=== PATIENT | female | born 1930 | race Caucasian/White ===

== ENCOUNTER 2019-04-25 13:21 | Emergency (ER) | payer OTHER ==
--- OUTSIDE RECORDS SUMMARY | 2019-04-25 13:24 | XMS REPORT ---
:1930 Author Organization [employer] Care Team Providers Name Role Phone Cardona, Na Provider Role Unavailable Allergies, Adverse Reactions, Alerts Substance Reaction Event Type Sulfa Info Not Available Drug Allergy PCN Info Not Available Drug Allergy Problems Problem Type Condition Code Onset Dates Condition Status Assessment Unsteady gait R26.81 Active Assessment Leukopenia, unspecified type D72.819 Active Assessment Osteopenia M85.80 Active Problem Hyperlipidemia E78.5 Active Assessment Restless leg syndrome G25.81 Active Problem GERD without esophagitis K21.9 Active Assessment Primary osteoarthritis involving M15.0 Active multiple joints Problem Depression with anxiety F41.8 Active Problem 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 Problem Chronic fatigue R53.82 Active Problem Leukopenia, unspecified type D72.819 Active Problem Seasonal allergies J30.2 Active Assessment Seborrheic keratosis L82.1 Active Assessment Hypothyroidism E03.9 Active Problem Primary osteoarthritis involving M15.0 Active multiple joints Assessment Depression with anxiety F41.8 Active Problem Chronic UTI (urinary tract N39.0 Active infection) Problem Spinal stenosis of lumbar region M48.062 Active with neurogenic claudication Problem Elevated blood pressure reading R03.0 Active Problem Muscle weakness of lower extremity M62.81 Active Problem Restless leg syndrome G25.81 Active Assessment Hyperlipidemia E78.5 Active Assessment Adult general medical exam Z00.00 Active Problem Peripheral neuropathy G62.9 Active Problem Hypothyroidism E03.9 Active Problem Osteopenia M85.80 Active Problem Chronic UTI N39.0 Active Medications Medication Code Code Instructions Start End Status Dosage System Date Date Effexor XR ND 95954978974 150 MG Orally Active 1 capsule Once a day with food Pravachol NDC 05039249634 40 MG Orally Active 1 tablet Once a day Estrace ND 13696128121 0.1 MG/GM Apr 25, Active as directed Vaginal twice 2018 weekly Pravachol NDC 19007194592 40 MG Orally Active 1 tablet Once a day Effexor XR ND 48508768183 150 MG Active TAKE 1 CAPSULE BY MOUTH ONCE A DAY Clonazepam [facility] 97540759910 0.5 MG Orally Active 1 tablet at Once a day bedtime Pravastatin [facility] 65231038450 40 MG Orally Active 1 tablet Sodium Once a day Levothyroxine [facility] 59710113225 88 MCG Orally Active 1 capsule Sodium Once a day on an empty stomach in the morning Actonel [facility] 53300951802 35 MG Orally Active 1 tablet once a week Trimethoprim [facility] 60592379566 100 mg Orally Active 1 tablet Once a day Cefdinir [facility] 59069622589 300 MG Orally Active one tablet BID daily Pantoprazole [facility] 21618016803 40 MG Orally Active 1 tablet Sodium Once a day Restasis [facility] 48433583267 0.05 % Active 1 drop into Ophthalmic affected Twice a day eye Actonel [facility] 51410049711 35 MG Active TAKE 1 TABLET BY MOUTH ONCE A WEEK Qnasl [facility] 85389104912 80 MCG/ACT Active 2 puffs in Nasally Once a each day nostril Zetia [facility] 74497702525 10 MG Orally Active 1 tablet Once a day Venlafaxine HCl [facility] 06017414348 150 MG Orally Active 1 capsule ER Once a day with food Gabapentin [facility] 33129480382 600 MG Orally Active 1 tablet Three times a day Qnasl [facility] 54644067241 80 MCG/ACT Active INSTILL 2 SPRAYS NASALLY ONCE A DAY Requip [facility] 96538561103 1 MG Orally Active 1 tablet four times a day Effexor XR [facility] 23224996307 150 MG Orally Active 1 capsule Once a day with food Estradiol [facility] 09859805239 0.1 MG/GM Active as directed Vaginal Two times a Week Aspir-81 [facility] 12154023752 81 MG Orally Active 1 tablet Once a day Zetia [facility] 02779173502 10 MG Orally Active 1 tablet Once a day Pravachol [facility] 46642162928 40 Active TAKE ONE TABLET BY MOUTH EVERY NIGHT AT BEDTIME Results No Known Results Summary Purpose [employer]ClinicalWorks Submission
--- OUTSIDE RECORDS SUMMARY | 2019-04-25 13:24 | XMS REPORT ---
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 Problem Chronic fatigue R53.82 Active Problem Leukopenia, unspecified type D72.819 Active Assessment Asymptomatic bacteriuria R82.71 Active Problem Seasonal allergies J30.2 Active Problem Primary osteoarthritis involving M15.0 Active multiple joints Problem Chronic UTI (urinary tract N39.0 Active infection) Problem Spinal stenosis of lumbar region M48.062 Active with neurogenic claudication Problem Elevated blood pressure reading R03.0 Active Problem Muscle weakness of lower extremity M62.81 Active Problem Restless leg syndrome G25.81 Active Assessment Recurrent UTI N39.0 Active Assessment Urinary tract infection, site not N39.0 Active specified Problem Peripheral neuropathy G62.9 Active Problem Hypothyroidism E03.9 Active Problem Osteopenia M85.80 Active Problem Hyperlipidemia E78.5 Active Problem Chronic UTI N39.0 Active Problem GERD without esophagitis K21.9 Active Medications Medication Code Code Instructions Start End Status Dosage System Date Date Qnasl [facility] 53627993125 80 MCG/ACT Active INSTILL 2 SPRAYS NASALLY ONCE A DAY Zetia [facility] 71692635488 10 MG Orally Active 1 tablet Once a day Restasis [facility] 20061991338 0.05 % Active 1 drop Ophthalmic into Twice a day affected eye Clonazepam [facility] 28135568055 0.5 MG Orally Active 1 tablet Once a day at bedtime Requip [facility] 88670157444 1 MG Orally Active 1 tablet four times a day Effexor XR [facility] 62054221428 150 MG Active TAKE 1 CAPSULE BY MOUTH ONCE A DAY Estradiol [facility] 92273497147 0.1 MG/GM Active as Vaginal Two directed times a Week Gabapentin [facility] 54165237687 600 MG Orally Active 1 tablet Three times a day Pravastatin [facility] 49101594256 40 MG Orally Active 1 tablet Sodium Once a day Actonel [facility] 55970062335 35 MG Orally Active 1 tablet once a week Pravachol [facility] 38361703652 40 MG Orally Active 1 tablet Once a day Trimethoprim ND 98343376211 100 mg Orally Inactive 1 tablet Once a day Cipro [facility] 56718587820 250 MG Orally Dec 30, Jan Active 1 tablet every 12 hrs 2018 Keflex [facility] 43818644992 250 MG Orally Dec 30, Mar Active 1 capsule daily 2018 Pravachol [facility] 86128344694 40 MG Orally Active 1 tablet Once a day Effexor XR [facility] 54963037086 150 MG Orally Active 1 capsule Once a day with food Actonel [facility] 27085570395 35 MG Active TAKE 1 TABLET BY MOUTH ONCE A WEEK Cefdinir [facility] 18466604997 300 MG Orally Active one tablet BID daily Estrace [facility] 47401473645 0.1 MG/GM Apr 25, Active as Vaginal twice 2018 directed weekly Venlafaxine HCl [facility] 92064409469 150 MG Orally Active 1 capsule ER Once a day with food Zetia [facility] 92815884538 10 MG Orally Active 1 tablet Once a day Levothyroxine [facility] 42966229651 88 MCG Orally Active 1 capsule Sodium Once a day on an empty stomach in the morning Pravachol [facility] 69772880248 40 Active TAKE ONE TABLET BY MOUTH EVERY NIGHT AT BEDTIME Aspir-81 [facility] 06531613590 81 MG Orally Active 1 tablet Once a day Qnasl [facility] 75956320457 80 MCG/ACT Active 2 puffs in Nasally Once a each day nostril Effexor XR [facility] 80773486992 150 MG Orally Active 1 capsule Once a day with food Pantoprazole [facility] 11295880084 40 MG Orally Active 1 tablet Sodium Once a day Results No Known Results Summary Purpose eClinicalWorks Submission
--- OUTSIDE RECORDS SUMMARY | 2019-04-25 13:25 | XMS REPORT ---
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 Problem Chronic fatigue R53.82 Active Problem Leukopenia, unspecified type D72.819 Active Problem Seasonal allergies J30.2 Active Problem Primary osteoarthritis involving M15.0 Active multiple joints Problem Chronic UTI (urinary tract N39.0 Active infection) Problem Spinal stenosis of lumbar region M48.062 Active with neurogenic claudication Problem Elevated blood pressure reading R03.0 Active Problem Muscle weakness of lower extremity M62.81 Active Problem Restless leg syndrome G25.81 Active Assessment Recurrent UTI N39.0 Active Problem Peripheral neuropathy G62.9 Active Problem Hypothyroidism E03.9 Active Problem Osteopenia M85.80 Active Problem Hyperlipidemia E78.5 Active Problem Chronic UTI N39.0 Active Problem GERD without esophagitis K21.9 Active Medications Medication Code System Code Instructions Start End Date Status Dosage Date Keflex [facility] 57873487357 250 MG Orally Dec 30September 06, Active 1 capsule daily 2018 2019 Results No Known Results Summary Purpose eClinicalWorks Submission
--- OUTSIDE RECORDS SUMMARY | 2019-04-25 13:25 | XMS REPORT ---
:1930 Author Organization eClinicalWorks Care Team Providers Name Role Phone Cardona, Na Provider Role Unavailable Allergies No Known Allergies Problems Problem Type Condition Code Onset Dates Condition Status Problem GERD without esophagitis K21.9 Active Problem Lumbar stenosis with neurogenic M48.062 [...] Problem Restless leg syndrome G25.81 Active Assessment Hypothyroidism E03.9 Active Problem Chronic UTI N39.0 Active Problem Peripheral neuropathy G62.9 Active Problem Depression with anxiety F41.8 Active Problem Hypothyroidism E03.9 Active Problem Osteopenia M85.80 Active Problem Hyperlipidemia E78.5 Active Medications Medication Code Code Instructions Start End Status Dosage System Date Date Levothyroxine NDC 79544743319 88 MCG Orally Inactive 1 capsule Sodium Once a day on an empty stomach in the morning Levothyroxine NDC 97742761779 88 MCG Orally Jan 26, Active 1 tablet Sodium Once a day 2018 on an empty stomach in the morning Results No Known Results Summary Purpose eClinicalWorks Submission
--- OUTSIDE RECORDS SUMMARY | 2019-04-25 13:25 | XMS REPORT ---
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 Problem Chronic fatigue R53.82 Active Problem Leukopenia, unspecified type D72.819 Active Problem Seasonal allergies J30.2 Active Assessment Depression with anxiety F41.8 Active Assessment Restless leg syndrome G25.81 Active Problem Primary osteoarthritis involving M15.0 Active multiple joints Assessment Primary osteoarthritis involving M15.0 Active multiple joints Problem Chronic UTI (urinary tract N39.0 Active infection) Problem Spinal stenosis of lumbar region M48.062 Active with neurogenic claudication Problem Elevated blood pressure reading R03.0 Active Problem Muscle weakness of lower extremity M62.81 Active Problem Restless leg syndrome G25.81 Active Assessment Hyperlipidemia E78.5 Active Assessment Hypothyroidism E03.9 Active Problem Peripheral neuropathy G62.9 Active Problem Hypothyroidism E03.9 Active Problem Osteopenia M85.80 Active Problem Chronic UTI N39.0 Active Medications Medication Code Code Instructions Start End Status Dosage System Date Date Zetia [facility] 97863047504 10 MG Orally Active 1 tablet Once a day Aspir-81 [facility] 24451221536 81 MG Orally Active 1 tablet Once a day Estradiol ND 04702479374 0.1 MG/GM Active as directed Vaginal Two times a Week Qnasl [facility] 91468200108 80 MCG/ACT Active 2 puffs in Nasally Once a each day nostril Restasis [facility] 95092872032 0.05 % Active 1 drop into Ophthalmic affected Twice a day eye Effexor XR [facility] 78504839075 150 MG Active TAKE 1 CAPSULE ONCE DAILY WITH FOOD Zetia [facility] 20779199439 10 MG Orally Active 1 tablet Once a day Pantoprazole [facility] 09496104286 40 MG Orally Active 1 tablet Sodium Once a day Pravachol [facility] 13925764229 40 MG Orally Active 1 tablet Once a day Requip [facility] 96808171089 1 MG Orally Active 1 tablet four times a day Actonel [facility] 98871750793 35 MG Orally Active 1 tablet once a week Estrace [facility] 00988199963 0.1 MG/GM Apr 25, Active as directed Vaginal twice 2017 weekly Keflex [facility] 39705428174 250 MG Orally Dec 30, Mar 30, Active 1 capsule daily 2018 2019 Levothyroxine [facility] 86162492084 88 MCG Orally Jan 26, Active 1 tablet on Sodium Once a day 2018 an empty stomach in the morning Levothyroxine [facility] 48775510237 88 MCG Orally Active 1 capsule Sodium Once a day on an empty stomach in the morning Qnasl [facility] 53867705047 80 MCG/ACT Active INSTILL 2 SPRAYS NASALLY ONCE A DAY Gabapentin [facility] 73000786937 600 MG Orally Active 1 tablet Three times a day Pravachol [facility] 98684645575 40 MG Orally Active 1 tablet Once a day Effexor XR [facility] 04522802843 150 MG Orally Active 1 capsule Once a day with food Results No Known Results Summary Purpose eClinicalWorks Submission
--- OUTSIDE RECORDS SUMMARY | 2019-04-25 13:25 | XMS REPORT ---
:1930 Author Organization eClinicalWorks Care Team Providers Name Role Phone Shin Mary Provider Role Unavailable Allergies No Known Allergies [...] Active Problem Restless leg syndrome G25.81 Active Problem Peripheral neuropathy G62.9 Active Problem Hypothyroidism E03.9 Active Problem Osteopenia M85.80 Active Problem Hyperlipidemia E78.5 Active Problem Chronic UTI N39.0 Active Problem GERD without esophagitis K21.9 Active Medications Medication Code System Code Instructions Start End Date Status Dosage Date Monurol [facility] 24417622999 3 GM Orally once Jan 08, Jan 09, Active 1 packet 2018 2018 for 3 doses mixed in 3 to 4 ounces of water Results No Known Results Summary Purpose eClinicalWorks Submission
--- OUTSIDE RECORDS SUMMARY | 2019-04-25 13:25 | XMS REPORT ---
:1930 Author Organization eClinicalWorks Care Team Providers Name Role Phone ShinMary Provider Role Unavailable Allergies, Adverse Reactions, Alerts [...] Problem Restless leg syndrome G25.81 Active Assessment Urinary tract infection, site not N39.0 Active specified Assessment Recurrent UTI N39.0 Active Problem Peripheral neuropathy G62.9 Active Problem Hypothyroidism E03.9 Active Problem Osteopenia M85.80 Active Problem Hyperlipidemia E78.5 Active Problem Chronic UTI N39.0 Active Problem GERD without esophagitis K21.9 Active Medications Medication Code Code Instructions Start End Status Dosage System Date Date Estrace [facility] 25302128417 0.1 MG/GM Apr 25, Active as directed Vaginal twice 2018 weekly Zetia [facility] 79374615497 10 MG Orally Active 1 tablet Once a day Actonel [facility] 15910418925 35 MG Orally Active 1 tablet once a week Pravachol ND 96589929733 40 MG Orally Active 1 tablet Once a day Effexor XR [facility] 62520608027 150 MG Active TAKE 1 CAPSULE ONCE DAILY WITH FOOD Keflex [facility] 21190154563 250 MG Orally Dec 30September Active 1 capsule daily 2018 Levothyroxine [facility] 40521986267 88 MCG Orally Jan 26, Active 1 tablet on Sodium Once a day 2019 an empty stomach in the morning Effexor XR [facility] 19862715667 150 MG Orally Active 1 capsule Once a day with food Pantoprazole [facility] 59371747380 40 MG Orally Active 1 tablet Sodium Once a day Gabapentin [facility] 22052130109 600 MG Orally Active 1 tablet Three times a day Qnasl [facility] 43261927756 80 MCG/ACT Active INSTILL 2 SPRAYS NASALLY ONCE A DAY Requip [facility] 85799825514 1 MG Orally Active 1 tablet four times a day Restasis [facility] 85636400433 0.05 % Active 1 drop into Ophthalmic affected Twice a day eye Estradiol [facility] 49381817356 0.1 MG/GM Active as directed Vaginal Two times a Week Zetia [facility] 24182793756 10 MG Orally Active 1 tablet Once a day Aspir-81 [facility] 73808050171 81 MG Orally Active 1 tablet Once a day Levothyroxine [facility] 20146034540 88 MCG Orally Active 1 capsule Sodium Once a day on an empty stomach in the morning Qnasl [facility] 72862733612 80 MCG/ACT Active 2 puffs in Nasally Once a each day nostril Pravachol [facility] 45024700148 40 MG Orally Active 1 tablet Once a day Results No Known Results Summary Purpose eClinicalWorks Submission
--- OUTSIDE RECORDS SUMMARY | 2019-04-25 13:25 | XMS REPORT ---
[...] Problem GERD without esophagitis K21.9 Active Medications No Known Medications Results No Known Results Summary Purpose [employer] Submission
--- OUTSIDE RECORDS SUMMARY | 2019-04-25 13:25 | XMS REPORT ---
[...] G25.81 Active Assessment Hypothyroidism E03.9 Active Problem Peripheral neuropathy G62.9 Active Problem Hypothyroidism E03.9 Active Problem Osteopenia M85.80 Active Problem Hyperlipidemia E78.5 Active Problem Chronic UTI N39.0 Active Problem GERD without esophagitis K21.9 Active Medications Medication Code Code Instructions Start End Status Dosage System Date Date Levothyroxine [facility] 40124660952 88 MCG Orally Active 1 capsule Sodium Once a day on an empty stomach in the morning Results No Known Results Summary Purpose eClinicalWorks Submission
--- OUTSIDE RECORDS SUMMARY | 2019-04-25 13:26 | XMS REPORT ---
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 Problem Chronic fatigue R53.82 Active Problem Spinal stenosis of lumbar region M48.062 Active with neurogenic claudication Problem Primary osteoarthritis involving M15.0 Active multiple joints Assessment Acute allergic rhinitis J30.9 Active Problem Leukopenia, unspecified type D72.819 Active Problem Acute allergic rhinitis J30.9 Active Problem Muscle weakness of lower extremity M62.81 Active Problem Chronic UTI (urinary tract N39.0 Active infection) Problem Seasonal allergies J30.2 Active Problem Elevated blood pressure reading R03.0 Active Problem Restless leg syndrome G25.81 Active Problem Osteopenia M85.80 Active Assessment Cough R05 Active Problem Hypothyroidism E03.9 Active Problem Hyperlipidemia E78.5 Active Problem Chronic UTI N39.0 Active Problem GERD without esophagitis K21.9 Active Problem Peripheral neuropathy G62.9 Active Problem Depression with anxiety F41.8 Active Medications Medication Code Code Instructions Start End Status Dosage System Date Date Effexor XR ND 01209848322 150 MG Orally Active 1 capsule Once a day with food Levothyroxine ND 70955611933 88 MCG Orally Nov , Active 1 tablet on Sodium Once a day 2019 an empty stomach in the morning Effexor XR [facility] 66985038467 150 MG Active TAKE 1 CAPSULE ONCE DAILY WITH FOOD Estradiol ND 66781679606 0.1 MG/GM Active as directed Vaginal Two times a Week Pantoprazole ND 20831075729 40 MG Orally Active 1 tablet Sodium Once a day Zetia ND 92833851242 10 MG Orally Active 1 tablet Once a day Actonel ND 47875221946 35 MG Orally Active 1 tablet once a week Requip ND 74191291233 1 MG Orally Active 1 tablet four times a day Estrace [facility] 95008506253 0.1 MG/GM Apr 25, Active as directed Vaginal twice 2018 weekly Restasis [facility] 93733038192 0.05 % Active 1 drop into Ophthalmic affected Twice a day eye Pravachol [facility] 18565789204 40 MG Orally Active 1 tablet Once a day Gabapentin [facility] 55524353209 600 MG Orally Active 1 tablet Three times a day Qnasl [facility] 44314695360 80 MCG/ACT Active 2 puffs in Nasally Once a each day nostril Levothyroxine [facility] 10509545469 88 MCG Orally Active 1 capsule Sodium Once a day on an empty stomach in the morning Aspir-81 [facility] 45270050658 81 MG Orally Active 1 tablet Once a day Keflex [facility] 66797741276 250 MG Orally Dec 30September Active 1 capsule daily 2018 Zetia [facility] 63444512629 10 MG Orally Active 1 tablet Once a day Pravachol [facility] 48598979778 40 MG Orally Active 1 tablet Once a day Qnasl [facility] 87294099649 80 MCG/ACT Active 2 sprays in Nasally Once a each day nostril Results No Known Results Summary Purpose eClinicalWorks Submission
[2019-04-25] MEDS ORDERED: LEVALBUTEROL 1.25 MG/3 ML NEB ONE (14:17)
--- NOTE | 2019-04-25 16:25 | RAD REPORT ---
EXAM DESCRIPTION: RAD - Chest Pa And Lat (2 Views) - 04/25/2019 3:38 pm CLINICAL HISTORY: chest pain COMPARISON: Chest Single View dated 09/20/2016; CHEST PA AND LAT 2 VIEW dated 03/30/2015 TECHNIQUE: Frontal and lateral views of the chest were obtained. FINDINGS: The lungs are clear of focal mass or consolidation. Fibrotic changes are present similar t o comparison. Heart size is normal and central vasculature is within normal limits. Right base ate lectasis is present. Minimal right pleural effusion is suspected. No acute bony finding noted. No ao rtic abnormality. IMPRESSION: Diffuse change similar to comparison with focal fibrotic stranding or atelectasis right base.
--- NOTE | 2019-04-25 16:52 | ER ---
Nurse's Notes [facility] Name: Mary Oakley Age: 88 yrs Sex: Female : 1930 Arrival Date: 04/25/2019 Time: 13:23 Bed 7 Private MD: Charleen Cardona Diagnosis: Acute bronchitis Presentation: 04/25 13:33 Presenting complaint: Patient states: "I've had a bad cough for several weeks, before aj1 that I had nasal congestion and lately I've been having bad headaches" Denies fever. Transition of care: patient was not received from another setting of care. Onset of symptoms was April 2019. Risk Assessment: Do you want to hurt yourself or someone else? Patient reports no desire to harm self or others. Initial Sepsis Screen: Does the patient meet any 2 criteria? HR > 90 bpm. No. Patient's initial sepsis screen is negative. Does the patient have a suspected source of infection? Yes: Productive cough/pneumonia. Care prior to arrival: None. 13:33 Method Of Arrival: Ambulatory aj1 13:33 Acuity: YOLIS 3 aj1 Triage Assessment: 13:41 General: Appears in no apparent distress. uncomfortable, Behavior is cooperative, flat. aj1 Pain: Denies pain. Neuro: Level of Consciousness is awake, alert, obeys commands. Cardiovascular: Patient's skin is warm and dry. Respiratory: Airway is patent Respiratory effort is even, unlabored, Respiratory pattern is regular, symmetrical. Historical: - Allergies: 13:41 PENICILLINS; aj1 13:41 Sulfa (Sulfonamide Antibiotics); aj1 - Home Meds: 13:41 gabapentin oral oral [Active]; estracde cream [Active]; ropinirole oral oral [Active]; aj1 QNASL nasal nasal [Active]; levothyroxine oral [Active]; pantoprazole oral oral [Active]; cranberry oral oral [Active]; gianna red [Active]; B12 sublingual sublingual [Active]; Co Q-10 oral oral [Active]; Folic Acid Oral [Active]; calcium oxide [Active]; Magnesium Oxide Oral [Active]; biotin oral oral [Active]; Vitamin D3 oral oral [Active]; venlafaxine oral oral [Active]; ezetimibe oral oral [Active]; pravastatin oral oral [Active]; Aspirin Oral [Active]; risedronate oral oral [Active]; hyaluronic acid [Active]; Trimethoprim Oral [Active]; - PMHx: 13:41 Hypothyroidism; Hyperlipidemia; GERD; vasovagal syncope; Depression; UTI; aj1 - Immunization history:: Flu vaccine is not up to date. - Coronavirus screen:: The patient has NOT traveled to [place] in the past 14 days. - Social history:: Smoking status: Patient/guardian denies using tobacco. - Ebola Screening: : Patient denies travel to an Ebola-affected area in the 21 days before illness onset. Screenin:49 Abuse screen: Denies threats or abuse. Denies injuries from another. Nutritional bp screening: No deficits noted. Tuberculosis screening: No symptoms or risk factors identified. Fall Risk None identified. Assessment: 13:49 General: SEE TRIAGE NOTE. bp 15:13 Reassessment: NO S/S ACUTE DISTRESS, VS STABLE. bp 16:06 Reassessment: PT RESTING QUIETLY, NO S/S ACUTE DISTRESS AT THIS TIME. bp 17:17 Reassessment: PT D/C HOME AMBULATORY WITH FAMILY, DX WITH ACUTE BRONCHITIS. bp Vital Signs: 13:41 BP 102 / 57; Pulse 77; Resp 18; Temp 97.6; Pulse Ox 98% on R/A; Weight 79.38 kg (R); aj1 Height 5 ft. 7 in. (170.18 cm) (R); Pain 0/10; 15:13 BP 130 / 61; Pulse 82; Resp 17; Pulse Ox 100% ; bp 16:06 BP 138 / 61; Pulse 86; Resp 17; Pulse Ox 98% ; bp 17:17 BP 136 / 56; Pulse 83; Resp 17; Temp 98; Pulse Ox 99% ; bp 13:41 Body Mass Index 27.41 (79.38 kg, 170.18 cm) aj1 ED Course: 13:23 Patient arrived in ED. as 13:23 Charleen Cardona MD is Private Physician. as 13:34 Triage completed. aj1 13:41 Arm band placed on Patient placed in an exam room. aj1 13:45 Chalo Ayon PA is PHCP. [facility] 13:45 Jesus Francois MD is Attending Physician. [facility] 13:49 Patient has correct armband on for positive identification. Bed in low position. Call bp light in reach. Side rails up X2. Adult w/ patient. 14:09 Daniel Nicole, RN is Primary Nurse. bp 16:51 Charleen Cardona MD is Referral Physician. [facility] 17:17 No provider procedures requiring assistance completed. Patient did not have IV access bp during this emergency room visit. Administered Medications: 14:17 Drug: Xopenex (3) 1.25 mg Route: Inhalation; bp 17:10 Drug: Decadron 10 mg Route: IM; Site: Other; bp 17:17 Follow up: Response: No adverse reaction bp Outcome: 16:51 Discharge ordered by . jmm 17:21 Discharged to home ambulatory, with family. bp 17:21 Condition: stable 17:21 Discharge instructions given to patient, Instructed on discharge instructions, follow up and referral plans. medication usage, Demonstrated understanding of instructions, follow-up care, medications, Prescriptions given X 3. 17:30 Patient left the ED. bp Signatures: Zoya Payne, RN RN aj1 Chalo Ayon PA PA Cecy Garcia as Daniel Nicole, RN RN bp
--- NOTE | 2019-04-25 16:53 | EDPHYS ---
Physician Documentation [facility] Name: Mary Oakley Age: 88 yrs Sex: Female : 1930 Arrival Date: 04/25/2019 Time: 13:23 Bed 7 Private MD: Charleen Cardona ED Physician Jesus Francois HPI: 04/25 14:09 This 88 yrs old Female presents to ER via Ambulatory with complaints of Cold jmm Symptoms. 14:09 The patient or guardian reports cough. Onset: The symptoms/episode began/occurred jmm gradually, 3 week(s) ago. 14:09 Modifying factors: The symptoms are alleviated by nothing. the symptoms are aggravated jmm by nothing. Associated signs and symptoms: Pertinent negatives: fever, sore throat. This is an 88 year old female with a history of hlp, hypothyroidism that presents to the ED with complaints of cough, congestion beginning approx 3 weeks ago worsening. Patient denies fever. . Historical: - Allergies: 13:41 PENICILLINS; aj1 13:41 Sulfa (Sulfonamide Antibiotics); aj1 - Home Meds: 13:41 gabapentin oral oral [Active]; estracde cream [Active]; ropinirole oral oral [Active]; aj1 QNASL nasal nasal [Active]; levothyroxine oral [Active]; pantoprazole oral oral [Active]; cranberry oral oral [Active]; gianna red [Active]; B12 sublingual sublingual [Active]; Co Q-10 oral oral [Active]; Folic Acid Oral [Active]; calcium oxide [Active]; Magnesium Oxide Oral [Active]; biotin oral oral [Active]; Vitamin D3 oral oral [Active]; venlafaxine oral oral [Active]; ezetimibe oral oral [Active]; pravastatin oral oral [Active]; Aspirin Oral [Active]; risedronate oral oral [Active]; hyaluronic acid [Active]; Trimethoprim Oral [Active]; - PMHx: 13:41 Hypothyroidism; Hyperlipidemia; GERD; vasovagal syncope; Depression; UTI; aj1 - Immunization history:: Flu vaccine is not up to date. - Coronavirus screen:: The patient has NOT traveled to [place] in the past 14 days. - Social history:: Smoking status: Patient/guardian denies using tobacco. - Ebola Screening: : Patient denies travel to an Ebola-affected area in the 21 days before illness onset. ROS: 14:09 Constitutional: Negative for fever, chills, and weight loss, Cardiovascular: Negative [facility] for chest pain, palpitations, and edema. 14:09 ENT: Positive for sinus congestion. 14:09 Respiratory: Positive for cough. 14:09 All other systems are negative. Exam: 14:09 Constitutional: This is a well developed, well nourished patient who is awake, alert, jmm and in no acute distress. Head/Face: atraumatic. Eyes: EOMI, no conjunctival erythema appreciated ENT: Moist Mucus Membranes Neck: Trachea midline, Supple Chest/axilla: Normal chest wall appearance and motion. Cardiovascular: Regular rate and rhythm. No edema appreciated 14:09 Abdomen/GI: Non distended, soft Back: Normal ROM Skin: General appearance color normal MS/ Extremity: Moves all extremities, no obvious deformities appreciated, no edema noted to the lower extremities Neuro: Awake and alert, normal gait Psych: Behavior is normal, Mood is normal, Patient is cooperative and pleasant 14:09 Respiratory: the patient does not display signs of respiratory distress, Respirations: normal, Breath sounds: wheezing: that is mild, is scattered. Vital Signs: 13:41 BP 102 / 57; Pulse 77; Resp 18; Temp 97.6; Pulse Ox 98% on R/A; Weight 79.38 kg (R); aj1 Height 5 ft. 7 in. (170.18 cm) (R); Pain 0/10; 15:13 BP 130 / 61; Pulse 82; Resp 17; Pulse Ox 100% ; bp 16:06 BP 138 / 61; Pulse 86; Resp 17; Pulse Ox 98% ; bp 17:17 BP 136 / 56; Pulse 83; Resp 17; Temp 98; Pulse Ox 99% ; bp 13:41 Body Mass Index 27.41 (79.38 kg, 170.18 cm) aj1 MDM: 14:01 Patient medically screened. [facility] 16:49 Data reviewed: vital signs, nurses notes. Counseling: I had a detailed discussion with vamshi the patient and/or guardian regarding: the historical points, exam findings, and any diagnostic results supporting the discharge/admit diagnosis, radiology results, the need for outpatient follow up, to return to the emergency department if symptoms worsen or persist or if there are any questions or concerns that arise at home. ED course: Patient is alert and non toxic in appearance in the ED. Patient advised to follow up with pcp and otherwise given strict return precautions. Patient understood and agrees with the plan of care. . 04/25 14:08 Order name: Chest Pa And Lat (2 Views) XRAY vamshi Administered Medications: 14:17 Drug: Xopenex (3) 1.25 mg Route: Inhalation; bp 17:10 Drug: Decadron 10 mg Route: IM; Site: Other; bp 17:17 Follow up: Response: No adverse reaction bp Disposition: 17:54 Co-signature as Attending Physician, Jesus Francois MD. rn Disposition: 04/25/19 16:51 Discharged to Home. Impression: Acute bronchitis. - Condition is Stable. - Discharge Instructions: Acute Bronchitis, Adult. - Prescriptions for Guaiatussin AC - take 5 milliliter by ORAL route every 6 hours; 60 milliliter. Medrol (Greg) 4 mg Oral Tablets, Dose Pack - take 1 tablet by ORAL route as directed - follow package instructions; 1 packet. Albuterol Sulfate 90 mcg/actuation - inhale 1-2 puff by INHALATION route every 4-6 hours; 1 Inhaler. - Medication Reconciliation Form, Thank You Letter, Antibiotic Education, Prescription Opioid Use form. - Follow up: Charleen Cardona MD; When: 2 - 3 days; Reason: Recheck today's complaints, Continuance of care, Re-evaluation by your physician. Signatures: Dispatcher [employer] EDZoya Gillis RN RN aj1 Chalo Ayon PA PA jmm Nieto, Roman, MD MD rn Peltier, Brian, RN RN bp Corrections: (The following items were deleted from the chart) 17:30 16:51 04/25/2019 16:51 Discharged to Home. Impression: Acute bronchitis. Condition is bp Stable. Forms are Medication Reconciliation Form, Thank You Letter, Antibiotic Education, Prescription Opioid Use. Follow up: Charleen Cardona; When: 2 - 3 days; Reason: Recheck today's complaints, Continuance of care, Re-evaluation by your physician. vamshi
[2019-04-25] MEDS ORDERED: dexAMETHasone 4 MG/ML VIAL ONE (17:15)
[2019-04-25 17:57] VITALS: BP 136/56; TEMP 98; O2SAT 99
== END 2019-04-25 17:30 | disposition home or self-care (01) ==
LOC: ER 13:21
DX: J20.9 Acute bronchitis, unspecified (principal); Z88.0 Allergy status to penicillin; E03.9 Hypothyroidism, unspecified; E78.5 Hyperlipidemia, unspecified; K21.9 Gastro-esophageal reflux disease without esophagitis; F32.9 Major depressive disorder, single episode, unspecified
CPT/HCPCS: 71046; 96372; 99284

== ENCOUNTER 2021-01-24 13:04 | Emergency (ER) | payer OTHER ==
--- OUTSIDE RECORDS SUMMARY | 2021-01-24 13:09 | XMS REPORT | Continuity of Care Document ---
:1930 Author Organization [facility] t Address [address] [place] [address] Care Team Providers Name Role Phone Precious Cardona Primary Care Physician Gee LOPEZ Attending Clinician Shoshana PRIETO Attending Clinician GEE Attending Clinician Unavailable GEE Attending Clinician Unavailable JESUS Attending Clinician Unavailable Payers Payer Name Policy Type Policy Number Effective Date Expiration Date S kiley [facility] MEDICARE [id number] 2020 ADVANTAGE 00:00:00 Problems Condition Condition Condition Status Onset Resolution Last Treating Co mments Source Name Details Category Date Date Treatment Clinician Date 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 Discussed with Ms. Oakley conservat rachell treatment options for osteoarth ritis. Treatment included pain medicatio n (NSAID's and topicals) , bracing, physical therapy, cortisone injection s, hyaluroni c acid, PRP, and bone grafting. We will do a steroid injection today in order bilateral hyaluroni c acid injection s. 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 11-03 Health 00:00: 00 Back pain Back pain Disease Active UT 11-03 Health 00:00: 00 Ovarian Ovarian Disease Active [facility] cyst cyst 11-03 Health 00:00: 00 Hip Hip Disease Active [facility] problem problem 11-03 Health 00:00: 00 History of History of Problem Resolve Univers Vasovagal Vasovagal d ity of near-synco near-synco [place] Physici ans Status Status Problem Active Univers post hip post hip ity of hemiarthro hemiarthro [place] plasty plasty Physici ans Pain in Pain in Problem Active Univers left tibia left tibia it y of [place] Physici ans Posterior Posterior Problem Active Uni vers tibial tibial it[place] of tendonitis tendonitis [place] , left , left Physici ans Pes Pes Problem Active Univers anserinus anserinus ity of bursitis bursitis [place] of left of left Physici knee knee ans S/P hip S/P hip Problem Active Univers replacemen replacemen it y of t, left t, left [place] Physici ans Primary Primary Problem Active Univers localized localized ity of osteoarthr [place]oarthr [place] it[place] of itis of Physici right hip right hip ans Primary Primary Problem Active Univers localized localized ity of osteoarthr osteoarthr [place] it[place] of itis of Physici left hip left hip ans Acute Acute Problem Active Univers left-sided left-sided it y of low back low back [place] pain with pain with Phys ici left-sided left-sided an s sciatica sciatica Lumbar Lumbar Problem Active Univers radiculopa radiculopa it y of thy thy [place] Physici ans History of History of Problem Active U nivers right hip right hip ity of hemiarthro hemiarthro [place] Physici ans Knee pain, Knee pain, Problem Active U nivers left left ity of [place] Physici ans Right Right Problem Active Univers shoulder shoulder ity of pain pain [place] [facility]ici ans Arthritis Arthritis Problem Active Uni vers of knee, of knee, ity of left left [place] [facility]ici ans Right Right Problem Active Univers shoulder shoulder ity of tendinitis tendinitis [place] [facility] Tendinitis Tendinitis Problem Active U nivers of left of left ity of rotator rotator [place] cuff cuff Physici ans History of History of Problem Resolve [facility] back pain back pain d ity of [place] Physici ans History of History of Problem Resolve Univers blood blood d ity of clots clots [place] Physici ans History of History of Problem Resolve Univers depression depression d it y of [place] Physici ans History of History of Problem Resolve Univers fracture fracture d ity of of rib of rib [place] Physici ans History of History of Problem Resolve Univers gastric gastric d ity of ulcer ulcer [place] Physici ans History of History of Problem 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 Physic i ans History of History of Problem Resolve Univers 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 [place] Physici ans History of History of Problem Resolve Univers pneumonia pneumonia d ity of [place] Physici ans History of History of Problem Resolve Univers 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 i (RLS) (RLS) ans History of History of Problem Resolve Univers thyroid thyroid d ity of disease disease [place] Physici ans Allergies, Adverse Reactions, Alerts Allergy Allergy Status Severity Reaction(s) Onset Inactive Treating Comm ents Source Name Type Date Date Clinician Sulfamet Allergy Active Hives UT hoxazole to 08-15 Health substanc 00:00: e 00 Trimetho Allergy Active Hives UT prim to 08-15 Health substanc 00:00: e 00 Penicill Allergy Active Hives UT ins to 10-19 Health substanc 00:00: e 00 Sulfa Allergy Active Univers Drugs to drug ity of (finding [place] ) Physici ans Sulfa Adverse Active Info Not [facility] Reaction Available [facility] PCN Adverse Active Info Not [facility] Reaction Available [facility] Penicill Allergy Active Univers ins to drug ity of ([facility] ) Physici ans Family History Family Member Diagnosis Comments Start Date Stop Date Source Unknown Family Family history Family History Un iversity of Member of arthritis [place] Physic ians Grandfather Family history Universit y of of diabetes [place] Physici ans mellitus Grandmother Family history Universit y of of diabetes [place] Physici ans mellitus Father Family history [facility] Physic ians neoplasm Brother Family history [facility] Physic ians neoplasm Social History Social Habit Start Date Stop Date Quantity Comments Source Exposure to Not sure [facility] SARS-CoV-2 (event) Alcohol intake 2020-12-28 2020-12-28 [facility] 00:00:00 00:00:00 non-drinker (finding) Tobacco use and 2020-11-02 2020-11-02 Smokeless tobacco [facility] exposure 00:00:00 00:00:00 non-user Sex Assigned At [birth year] [facility] 00:[facility] 00:00:00 Smoking Status Start Date Stop Date Source Never smoked tobacco [facility] Medications Ordered Filled Start Stop Current Ordering Indication Dosage Frequency Signature Comments Components Source Medication Medication Date Date Medication? Clinician (SIG) Name Name bupivacaine 2020-03- No [id number] 1mL UT (Marcaine) 012-30 Health 0.25 % 13:15: 13:15 injection 1 31 :00 mL triamcinolo 2020-03- No 80mg UT ne 12-30 Health acetonide 13:15: 13:15 (Kenalog-40 31 :00 ) injection 80 mg triamcinolo 2020-03 No 80mg 80 mg, UT ne 012-30 [facility] acetonide 13:15: 13:15 cular, (Kenalog-40 31 :00 Once PRN ) injection Procedure, 80 mg Starting on Sat12/30/20 at 0815, For 1 dose bupivacaine 2020-03- No 1mL 1 mL, UT (Marcaine) 0- 12-30 Injection, He alth 0.25 % 13:15: 13:15 Once PRN injection 1 31 :00 Procedure, mL Starting on Sat12/30/20 at 0815, For 1 dose ezetimibe 2020-0 Yes 1 (one) UT (Zetia) 10 11-02 time each Heal th MG tablet 11:07: day at the 47 same time. lansoprazol 2020-0 Yes TAKE 1 UT e 9- CAPSULE Health (Prevacid) 11:07: EVERY [address] 47 MORNING capsule DAILY. ezetimibe 1-0 Yes 1 (one) UT (Zetia) 10 11-02 time each Heal th MG tablet 11:07: day at the 47 same time. lansoprazol 2020-0 Yes TAKE 1 UT e - CAPSULE Health (Prevacid) 11:07: EVERY [address] 47 MORNING capsule DAILY. ezetimibe 2020-0 Yes 1 (one) UT (Zetia) 10 11-02 time each Heal th MG tablet 11:07: day at the same time. lansoprazol 2020-0 Yes TAKE 1 UT e 11-02 CAPSULE Health (Prevacid) 11:07: EVERY [address] 47 MORNING capsule DAILY. ezetimibe 2020-0 Yes 1 (one) UT (Zetia) 10 11-02 time each Heal th MG tablet 11:07: day at the 47 same time. lansoprazol 2020-0 Yes TAKE 1 UT e 11-02 CAPSULE Health (Prevacid) 11:07: EVERY [address] 47 MORNING capsule DAILY. aspirin 0 Yes TAKE 1 UT (Aspirin 11-02 TABLET Health Adult Low 11:07: DAILY. Strength) 46 81 MG EC tablet benzonatate Yes TAKE 1 UT (Tessalon) 11-02 CAPSULE 3 Heal th 200 MG 11:07: TIMES capsule 46 DAILY NEEDED. clonazePAM 2020-0 Yes 1mg Take 1 mg UT (KlonoPIN) 11-02 by mouth. Heal th 1 MG tablet 11:07: 46 coenzyme 2020-0 Yes Take by UT Q-10 200 MG 11-02 mouth. Health capsule 11:07: 46 cycloSPORIN 2020-0 Yes Q12H every 12 UT E 11-02 (twelve) Health (Restasis) 11:07: hours. 0.05 % 46 ophthalmic emulsion folic acid 2020-0 Yes UT (Folvite) 11-02 Health 400 MCG 11:07: tablet 46 aspirin 2020-0 Yes TAKE 1 UT (Aspirin 9- TABLET Health Adult Low 11:07: DAILY. Strength) 46 81 MG EC tablet benzonatate 2020-0 Yes TAKE 1 UT (Tessalon) 11-02 CAPSULE 3 Heal th 200 MG 11:07: TIMES capsule 46 DAILY NEEDED. clonazePAM 2021-0 Yes 1mg Take 1 mg UT (KlonoPIN) 11-02 by mouth. Heal th 1 MG tablet 11:07: 46 coenzyme 2021-0 Yes Take by UT Q-10 200 MG 11-02 mouth. Health capsule 11:07: 46 cycloSPORIN 2021-0 Yes Q12H every 12 UT E 11-02 (twelve) Health (Restasis) 11:07: hours. 0.05 % 46 ophthalmic emulsion folic acid 2020-0 Yes UT (Folvite) 11-02 Health 400 MCG 11:07: tablet 46 aspirin 2020-0 Yes TAKE 1 UT (Aspirin - TABLET Health Adult Low 11:07: DAILY. Strength) 46 81 MG EC tablet benzonatate 2020-0 Yes TAKE 1 UT (Tessalon) 11-02 CAPSULE 3 Heal th 200 MG 11:07: TIMES capsule 46 DAILY NEEDED. clonazePAM 2020-0 Yes 1mg Take 1 mg UT (KlonoPIN) 11-02 by mouth. Heal th 1 MG tablet 11:07: 46 coenzyme 2021-0 Yes Take by UT Q-10 200 MG 11-02 mouth. Health capsule 11:07: 46 cycloSPORIN 2021-0 Yes Q12H every 12 UT E 11-02 () Health (Restasis) 11:07: hours. 0.05 % 46 ophthalmic emulsion folic acid 2020-0 Yes UT (Folvite) 11-02 Health 400 MCG 11:07: tablet 46 aspirin 202-0 Yes TAKE 1 UT (Aspirin 9- TABLET Health Adult Low 11:07: DAILY. Strength) 46 81 MG EC tablet benzonatate 2020-0 Yes TAKE 1 UT (Tessalon) 11-02 CAPSULE 3 Heal th 200 MG 11:07: TIMES capsule 46 DAILY NEEDED. clonazePAM 2021-0 Yes 1mg Take 1 mg UT (KlonoPIN) 11-02 by mouth. Heal th 1 MG tablet 11:07: 46 coenzyme 2020-0 Yes Take by UT Q-10 200 MG 11-02 mouth. Health capsule 11:07: 46 cycloSPORIN 1-0 Yes Q12H every 12 UT E 11-02 (twelve) Health (Restasis) 11:07: hours. 0.05 % 46 ophthalmic emulsion folic acid 2020-0 Yes UT (Folvite) 11-02 Health 400 MCG 11:07: tablet 46 risedronate 2021-0 Yes 1 tablet UT (Actonel) 11-02 Health 35 MG 11:07: tablet 45 pantoprazol 2021-0 Yes 1 (one) UT e 11-02 time each Health (ProtoNix) 11:07: day at the 40 MG EC 45 same time. tablet risedronate 2021-0 Yes 1 tablet UT (Actonel) 11-02 Health 35 MG 11:07: tablet 45 pantoprazol 2021-0 Yes 1 (one) UT e 11-02 time each Health (ProtoNix) 11:07: day at the 40 MG EC 45 same time. tablet risedronate 2021-0 Yes 1 tablet UT (Actonel) 11-02 Health 35 MG 11:07: tablet 45 pantoprazol 2021-0 Yes 1 (one) UT e 11-02 time each Health (ProtoNix) 11:07: day at the 40 MG EC 45 same time. tablet risedronate 2021-0 Yes 1 tablet UT (Actonel) 11-02 Health 35 MG 11:07: tablet 45 pantoprazol 2021-0 Yes 1 (one) UT e 11-02 time each Health (ProtoNix) 11:07: day at the 40 MG EC 45 same time. tablet cephalexin 2021-0 Yes QD Take by UT (Keflex) 7-16 mouth 1 Health 250 MG 00:00: (one) time capsule 00 each day. cephalexin 2021-0 Yes QD Take by UT (Keflex) 7-16 mouth 1 Health 250 MG 00:00: (one) time capsule 00 each day. cephalexin 2021-0 Yes QD Take by UT (Keflex) 7-16 mouth 1 Health 250 MG 00:00: (one) time capsule 00 each day. cephalexin 2021-0 Yes QD Take by UT (Keflex) 7-16 mouth 1 Health 250 MG 00:00: (one) time capsule 00 each day. levothyroxi Yes TAKE 1 UT ne 6-17 TABLET BY Health (Synthroid, 00:00: MOUTH Levoxyl) 88 00 EVERY DAY MCG tablet ON EMPTY STOMACH IN THE MORNING levothyroxi Yes TAKE 1 UT ne 6-17 TABLET BY Health (Synthroid, 00:00: MOUTH Levoxyl) 88 00 EVERY DAY MCG tablet ON EMPTY STOMACH IN THE MORNING levothyroxi Yes TAKE 1 UT ne 6-17 TABLET BY Health (Synthroid, 00:00: MOUTH Levoxyl) 88 00 EVERY DAY MCG tablet ON EMPTY STOMACH IN THE MORNING levothyroxi Yes TAKE 1 UT ne 6-17 TABLET BY Health (Synthroid, 00:00: MOUTH Levoxyl) 88 00 EVERY DAY MCG tablet ON EMPTY STOMACH IN THE MORNING alfuzosin Yes TAKE 1 UT (Uroxatral) 4-14 TABLET BY Hea lth 10 MG 24 hr 00:00: MOUTH tablet 00 IMMEDIATEL Y AFTER THE SAME MEAL ONCE A DAY AT BEDTIME alfuzosin Yes TAKE 1 UT (Uroxatral) 4-14 TABLET BY Hea lth 10 MG 24 hr 00:00: MOUTH tablet 00 IMMEDIATEL Y AFTER THE SAME MEAL ONCE A DAY AT BEDTIME alfuzosin Yes TAKE 1 UT (Uroxatral) 4-14 TABLET BY Hea lth 10 MG 24 hr 00:00: MOUTH tablet 00 IMMEDIATEL Y AFTER THE SAME MEAL ONCE A DAY AT BEDTIME alfuzosin Yes TAKE 1 UT (Uroxatral) 4-14 TABLET BY Hea lth 10 MG 24 hr 00:00: MOUTH tablet 00 IMMEDIATEL Y AFTER THE SAME MEAL ONCE A DAY AT BEDTIME alfuzosin 2020-0 2020- No 1 tablet UT (Uroxatral) 4-14 11-11 immediatel H ealth 10 MG 24 hr 00:00: 05:59 y after tablet 00 :00 the same meal alfuzosin 2020-0 2020- No 1 tablet UT (Uroxatral) 4-14 11-11 immediatel H ealth 10 MG 24 hr 00:00: 05:59 y after tablet 00 :00 the same meal alfuzosin 2020- No 1 tablet UT (Uroxatral) 06-15- immediatel H ealth 10 MG 24 hr 00:00: 05:59 y after tablet 00 :00 the same meal alfuzosin 2020- No 1 tablet UT (Uroxatral) 06-15 immediatel H ealth 10 MG 24 hr 00:00: 05:59 y after tablet 00 :00 the same meal levothyroxi 2018-03 Yes TAKE 1 UT ne 1-25 TABLET BY Health (Synthroid, 00:00: MOUTH Levoxyl) 88 00 EVERY DAY MCG tablet ON EMPTY STOMACH IN THE MORNING levothyroxi 2018-03 Yes TAKE 1 UT ne 1-25 TABLET BY Health (Synthroid, 00:00: MOUTH Levoxyl) 88 00 EVERY DAY MCG tablet ON EMPTY STOMACH IN THE MORNING levothyroxi 2018-03 Yes TAKE 1 UT ne 1-25 TABLET BY Health (Synthroid, 00:00: MOUTH Levoxyl) 88 00 EVERY DAY MCG tablet ON EMPTY STOMACH IN THE MORNING levothyroxi 2018-03 Yes TAKE 1 UT ne 1-25 TABLET BY Health (Synthroid, 00:00: MOUTH Levoxyl) 88 00 EVERY DAY MCG tablet ON EMPTY STOMACH IN THE MORNING Levothyroxi Levothyroxi Yes 1 QD TAKE 1 Univers ne Sodium ne Sodium TABLET ity of 75 MCG Oral 75 MCG Oral DAILY. [place] Tablet Tablet Physici ans Lansoprazol Lansoprazol Yes QD TAKE 1 Univers e 30 MG e 30 MG CAPSULE ity of Oral Oral EVERY [place] Capsule Capsule MORNING Physic i Delayed Delayed DAILY. ans Release Release Keflex Keflex Yes Mary 1 capsule [facility] Venlafaxine Venlafaxine Yes QD TAKE 1 Univers HCl ER 150 HCl ER 150 CAPSULE ity of MG Oral MG Oral ONCE DAILY [place] as Capsule Capsule WITH FOOD. Phy sici Extended Extended ans Release 24 Release 24 Hour Hour Gabapentin Gabapentin Yes Q0.5D TAKE 1 Univers 600 MG Oral 600 MG Oral TABLET ity of Tablet Tablet TWICE [place] DAILY. Physici ans Zetia 10 MG Zetia 10 MG Yes 1 QD TAKE 1 Univers Oral Tablet Oral Tablet TABLET ity of DAILY. [place] Physici ans Pravastatin Pravastatin Yes TAKE 1 Univers Sodium 40 Sodium 40 TABLET AT ity of MG Oral MG Oral BEDTIME. [place] Tablet Tablet Physici ans Cetirizine Cetirizine Yes 1 TAKE 1 U nivers HCl - 10 MG HCl - 10 MG TABLET AT ity of Oral Tablet Oral Tablet BEDTIME. [place] Physici ans Estrace 0.1 Estrace 0.1 Yes 2 INSERT 1/2 Univers MG/GM MG/GM APPLICATOR ity of Vaginal Vaginal FUL (2GM) [place] Cream Cream VAGINALLY Physici THREE ans TIMES WEEKLY. Qnasl 80 Qnasl 80 Yes 1 INSTILL 1 Un melo MCG/ACT MCG/ACT SQUIRT ity of Nasal Nasal Every [place] Aerosol Aerosol morning Physic i Solution Solution PRN ans Aspirin Aspirin Yes 1 QD TAKE 1 Univers Adult Low Adult Low TABLET ity of Strength 81 Strength 81 DAILY. [place] MG Oral MG Oral Physici Tablet Tablet ans Delayed Delayed Release Release Fish Oil Fish Oil Yes 1 Q0.5D TAKE 1 Univ ers 1200 MG 1200 MG CAPSULE ity of Oral Oral TWICE [place] Capsule Capsule DAILY Physici Delayed Delayed ans Release Release Acetaminoph Acetaminoph Yes TAKE 1 Univers en 500 MG en 500 MG TABLET ity of Oral Tablet Oral Tablet EVERY 4 TO [place] 6 HOURS Physici NEEDED. ans B-12 500 B-12 500 Yes Univers MCG Oral MCG Oral ity of Tablet Tablet [place] Physici ans Folic Acid Folic Acid Yes Uni vers 400 MCG 400 MCG ity of Oral Tablet Oral Tablet [place] Physici ans Magnesium Magnesium Yes Unive rs 400 MG Oral 400 MG Oral i ty of Tablet Tablet [place] Physici ans B Complex + B Complex + Yes U nivers C TR TBCR C TR TBCR ity o f [place] Physici ans Calcium Calcium Yes Univers TABS TABS ity of [place] Physici ans rOPINIRole rOPINIRole Yes Q0.3333D TAKE 1 Univers HCl - 0.25 HCl - 0.25 TABLET 3 ity of MG Oral MG Oral TIMES [place] Tablet Tablet DAILY. Physici ans Benzonatate Benzonatate Yes TAKE 1 Univers 200 MG Oral 200 MG Oral CAPSULE 3 ity of Capsule Capsule TIMES [place] DAILY Physici NEEDED. ans Lutein TABS Lutein TABS Yes 1 Q0.5D TAKE 1 Univers TABLET ity of TWICE [place] DAILY Physici ans Vitamin D Vitamin D Yes Unive rs TABS TABS ity of [place] Physici ans Biotin CAPS Biotin CAPS Yes U nivers ity of [place] Physici ans Tylenol Tylenol Yes Univers Sinus CAPS Sinus CAPS ity of [place] Physici ans Ibuprofen Ibuprofen Yes Unive rs TABS TABS ity of [place] Physici ans Cranberry Cranberry Yes Unive rs Plus Plus ity of Vitamin C Vitamin C [place] 20-3 Physi ci MG-UNIT MG-UNIT ans Oral Oral Capsule Capsule Probiotic Probiotic Yes Unive rs CAPS CAPS ity of [place] Physici ans Immunizations Ordered Immunization Filled Immunization Date Status Commen ts Source Name Name Covid-19 Pfizer 2020-10-31 Completed [facility] SARS-CoV-2 Vaccination 00:00:00 Covid-19 Pfizer 2020-10-10 Completed [facility] SARS-CoV-2 Vaccination 00:00:00 Vital Signs Vital Name Observation Time Observation Value Comments Source Body height 2020-12-28 170.2 cm [facility] 20:02:00 Body weight 2020-12-28 81.647 kg [facility] 20:02:00 BMI 2020-12-28 28.19 kg/m2 [facility] 20:02:00 Systolic blood 2020-11-02 171 mm[Hg] [facility] pressure 16:00:00 Diastolic blood 2020-11-02 77 mm[Hg] [facility] pressure 16:00:00 Heart rate 2020-11-02 72 /min [facility] 16:00:00 Body temperature 2020-11-02 36.28 Twyla [facility] 16:00:00 Body height 2020-11-02 170.2 cm [facility] 16:00:00 Body weight 2020-11-02 85.276 kg [facility] 16:00:00 BMI 2020-11-02 29.44 kg/m2 [facility] 16:00:00 Oxygen saturation 2020-11-02 97 /min [facility] in Arterial blood 16:00:00 by Pulse oximetry BP Systolic 2018-01-03 125 mm[Hg] Location: Count includes the [facility] :51:00 Position: [place] Physician s Sitting BP Diastolic 2018-01-03 63 mm[Hg] Location: Count includes the [facility] 09:51:00 Position: [place] Physician s Sitting Weight 2018-01-03 179 [lb_av] [facility] 09:51:00 [place] Physician s Body Mass Index 2018-01-03 28.04 kg/m2 University o f Calculated 09:51:00 [place] Physician s Height 2018-01-03 67 [in_us] [facility] 09:51:00 [place] Physician s Heart Rate 2018-01-03 70 /min [facility] 09:51:00 [place] Physician s Height 2017-02-13 68 [in_us] [facility] 14:20:00 [place] Physician s Procedures Procedure Date / Time Performing Clinician Source Performed XR KNEE 3 VIEWS BILATERAL 2020-12-28 20:47:53 Jil Flynn [facility] ID ARTHROCENTESIS 2020-12-28 19:15:00 Jil Flynn [facility] ASPIR&/INJ MAJOR JT/BURSA W/O US CV US ANKLE / BRACHIAL 2020-11-02 16:01:30 ShoshanaCarroll vilchis [facility] alth INDICES EXTREMITY COMPLETE MR Shoulder wo contrast 2018-03-21 00:00:00 [facility] [id number] Physicians [U] XRAY KNEE 3 VWS LEFT 2018-01-03 00:00:00 [facility] [id number] Physicians [U] XRAY SHOULDER MIN 2 2018-01-03 [id number] Spine lumbar wo 2017-02-13 00:00:00 [facility] contrast [id number] Physicians History of Hysterectomy [facility] Physicians History of Abdominal [facility] Surgery Physicians History of Breast Surgery [facility] Mastectomy Physicians History of Hip Surgery [facility] Right Physicians History of Cataract [facility] Extraction Physicians History of Eye Surgery [facility] Physicians Encounters Start End Encounter Admission Attending Care Care Encounter Source Date/Time Date/Time Type Type Clinicians Facility Department ID 2020-12-28 Outpatient [facility] [id number] [place] 15:35:51 Health 2020-12-28 Outpatient [facility] [id number] [place] 15:30:59 Health 2020-12-28 Outpatient [facility] [id number] [place] 15:30:59 Health 2020-12-27 Outpatient [facility] [id number] [place] 21:10:37 Health 2020-11-02 Outpatient [facility] [id number] [place] 10:38:31 Health 2021-01-15 2021-01-15 ambulatory [facility] [id number] 2020-12-28 2020-12-28 Office JUANA Flynn [facility] [id number] [place] 13:32:04 15:53:21 Visit Jil RICHEY [id number] H [facility] MEDICAL [id number] [address] [id number] 2020-12-27 2020-12-27 Orders JUANA Flynn [facility] [id number] [place] 00:00:00 00:00:00 Only Jil RICHEY [id number] H [facility] MEDICAL [id number] [address] [id number] 2020-12-26 2020-12-26 Outpatient [facility] [id number] [facility] 2020-12-05 2020-12-05 Outpatient [facility] [id number] [facility] 2020-11-02 2020-11-02 Office Carroll Anna [facility] [id number] [place] 10:05:02 10:35:02 Visit AIDAN ARZATE [id number] [facility] [id number] 2020-10-03 2020-10-03 Outpatient [facility] [id number] [facility] 2020-09-22 2020-09-22 Outpatient [facility] [id number] [facility] 2020-08-23 2020-08-23 Outpatient [facility] [id number] [facility] 2020-07-22 2020-07-22 Outpatient [facility] [id number] [facility] 2020-07-04 2020-07-04 Outpatient [facility] [id number] [facility] 2020-06-20 2020-06-20 Outpatient [facility] [id number] [facility] 2020-06-15 2020-06-15 Outpatient [facility] [id number] [facility] 2020-06-15 2020-06-15 Outpatient [facility] [id number] [facility] 2020-05-27 2020-05-27 Outpatient [facility] [id number] [facility] 2020-04-25 2020-04-25 Outpatient [facility] [id number] [facility] 2020-04-15 2020-04-15 Outpatient [facility] [id number] [facility] 2020-04-15 2020-04-15 Outpatient [facility] [id number] [facility] 2020-04-14 2020-04-14 Outpatient [facility] [id number] [facility] 2020-04-11 2020-04-11 Outpatient [facility] [id number] [facility] 2020-04-01 2020-04-01 Outpatient [facility] [id number] [facility] 2020-03-29 2020-03-29 Outpatient [facility] [id number] [facility] 2020-03-02 2020-03-02 Outpatient [facility] [id number] [facility] 00:00:00 00:00:00 [facility] 2020-02-29 2020-02-29 [facility] [id number] [facility] 2020-01-07 2020-01-07 Out[facility] [id number] [facility] 2019-12-22 2019-12-22 Outpatient [facility] [id number] [facility] 2019-12-16 2019-12-16 Outpatient [facility] [id number] [facility] 2019-10-12 2019-10-12 [facility] [id number] [facility] 11:47:00 11:47:00 t Specialty/U Dafne kes - Specialty rology [facility] l [facility] Outpati ent Clinics 2019-09-30 2019-09-30 [facility] [id number] [facility] 11:00:00 11:00:00 t Specialty/U Dafne kes - Specialty rology [facility]Urology [facility] l Clinic Outpati ent Clinics 2019-09-18 2019-09-18 [facility] [id number] Univers 13:00:00 13:00:00 Yasir Tay GEE, PORCELAIN BUILDUP ASSISTANT II Liz Cardenas PORCELAIN BUILDUP ASSISTANT ans 2019-09-08 2019-09-08 [facility] [id number] [facility] 14:40:00 14:40:00 t [employer] [facility] Outpati ent Clinics 2019-06-04 2019-06-04 [facility] [id number] [facility] 10:40:00 10:40:00 t [employer] s - Drive [facility] Medicine Outpati ent Clinics 2019-05-08 2019-05-08 [facility] [id number] 11:20:00 11:20:00 t Milan Milan Rudder s - Drive [facility] Outpati ent Clinics 2019-04-13 2019-04-13 [facility] [id number] 09:40:00 09:40:00 t Milan SMITH (formerly [employer]) s - Drive [facility] Medicine Outpati ent Clinics 2019-04-01 2019-04-01 [facility] [id number] 10:30:00 10:30:00 t Specialty/U Dafne kes - Specialty rology Memori [facility]Urology Clinic l Clinic Outpati ent Clinics 2019-03-11 2019-03-11 [facility] [id number] [address] 09:23:00 09:23:00 t Specialty/U Dafne kes - Specialty rology Memori [facility]Urology Clinic l Clinic Outpati ent Clinics 2019-03-05 2019-03-05 [facility] [id number] 10:40:00 10:40:00 t Milan SMITH (formerly [employer] s - Drive [facility] Medicine Outpati ent Clinics 2019-02-10 2019-02-10 [facility] [id number] 11:33:00 11:33:00 t Milan Milan Rudder s - Drive [facility] Medicine Outpati ent Clinics 2019-01-26 2019-01-26 [facility] [id number] [facility] 09:27:00 09:27:00 t Milan SMITH (formerly [employer] s - Drive [facility] Medicine Outpati ent Clinics 2019-01-21 2019-01-21 [facility] [id number] 10:27:00 10:27:00 t Milan Milan Rudder s - Drive [facility] l Medicine Outpati ent Clinics 2019-01-08 2019-01-08 [facility] [id number] 08:54:00 08:54:00 t Specialty/U Dafne kes - Specialty rology Memori a /Urology Clinic l Clinic Outpati ent Clinics 2018-12-30 2018-12-30 [facility] [id number] 10:30:00 10:30:00 t Specialty/U Dafne kes - Specialty rology Memori [facility]Urology Clinic l Clinic Outpati ent Clinics 2018-12-19 2018-12-19 [facility] [id number] 14:40:00 14:40:00 t [employer] [facility] Outpati ent Clinics 2018-10-03 2018-10-03 [facility] [id number] [facility] 11:45:00 11:45:00 t Specialty/U Dafne kes - Specialty rology Memori a /Urology Clinic l Clinic Outpati ent Clinics 2018-09-18 2018-09-18 [facility] [id number] 14:40:00 14:40:00 t [employer] [facility] 2018-07-14 2018-07-14 Appointmen JUANA FLYNN [id number] Univers 13:15:00 13:15:00 t; JIL [facility] Liz LEY APRN ans 2018-06-19 2018-06-19 [facility] [id number] 13:20:00 13:20:00 t [employer] [facility] Outpati ent Clinics 2018-06-10 2018-06-10 [facility] [id number] [facility] 16:40:00 16:40:00 t Specialty/U Dafne kes - Specialty rology Memori a /Urology Clinic l Clinic Outpati ent Clinics 2018-06-10 2018-06-10 [facility] [id number] [facility] 11:15:00 11:15:00 t Specialty/U Dafne kes - Specialty rology Memori a /Urology Clinic l Clinic Outpati ent Clinics 2018-03-24 2018-03-24 [facility] [id number] 11:24:00 11:24:00 t [employer] [facility] Outpati ent Clinics 2018-03-21 2018-03-21 Appointmen JUANA FLYNN Closplint [id number] Univers 11:00:00 11:00:00 t; JIL [facility] JIL Physici PORCELAIN BUILDUP ASSISTANT ans 2018-03-12 2018-03-12 [facility] [id number] [facility] 14:15:00 14:15:00 t Milan SMITH (formerly [employer] s - Drive [facility] Medicine Outpati ent Clinics 2018-02-27 2018-02-27 [facility] [id number] 14:59:00 14:59:00 t [place] SMITH [employer] s - [employer] [facility] Medicine Outpati ent Clinics 2018-01-03 2018-01-03 [facility] FLYNN Closplint [id number] [facility] 09:00:00 09:00:00 t; JIL [facility] Liz LEY PORCELAIN BUILDUP ASSISTANT ans 2017-12-02 2017-12-02 [facility] [id number] 14:37:00 14:37:00 t Specialty/U Dafne kes - Specialty rology Memori a /Urology Clinic l Clinic Outpati ent Clinics 2017-11-15 2017-11-15 [facility] [id number] 08:32:00 08:32:00 t Specialty/U Dafne kes - Specialty rology Memori a /Urology Clinic l Clinic Outpati ent Clinics 2017-11-12 2017-11-12 [facility] [id number] 11:15:00 11:15:00 t [employer] - [employer] [facility] Medicine Outpati ent Clinics 2017-10-31 2017-10-31 [facility] [id number] 11:00:00 11:00:00 t Specialty/U Dafne kes - Specialty rology Memori a /Urology Clinic l Clinic Outpati ent Clinics 2017-10-18 2017-10-18 [facility] [id number] 13:50:00 13:50:00 t [place] SMITH (formerly [employer] s - Drive [facility] Medicine Medicine Outpati ent Clinics 2017-09-25 2017-09-25 [facility] [id number] 14:15:00 14:15:00 t [place] SMITH [employer]formerly [employer] s - [employer] [facility] l Medicine Outpati ent Clinics 2017-02-13 2017-02-13 Appointmen GEE JUANA Closplint [id number] Univers 13:45:00 13:45:00 t; ROSA LEY Orthopedics ity of [facility] ROSA LEY Physi ci ans 2015-08-29 2015-08-29 Appointmen [facility] UTP [id number] Univers 10:30:00 10:30:00 t; MARISA Moraes ity of [place] Silva M.D. Physi ci M.DEduar ans 2015-07-18 2015-07-18 Appointmen [facility]IZ [facility] UTP [id number] Univers 13:30:00 13:30:00 t; MARISA Moraes ity of [facility] MARISA Elise Physi ci M.DEduar ans Results Test Description Test Time Test Comments Results Result Sour e Comments [U] XRAY SHOULDER 2018-01-03 Images Univers ity of MIN 2 VWS RIGHT 10:02:00 acquired, not [place] [id number] reported on Physicians this accession number. [U] XRAY KNEE 3 2018-01-03 Images Universit y of VWS LEFT [id number] 09:58:00 acquired, not [place] reported on Phys[facility] this accession number.
--- NOTE | 2021-01-24 13:38 | RAD REPORT ---
EXAM DESCRIPTION: CT - Head Brain Wo Cont - 01/24/2021 1:29 pm CLINICAL HISTORY: SYNCOPE COMPARISON: Head Brain Wo Cont dated 08/31/2015 TECHNIQUE: Axial 5 mm thick images of the head were obtained without IV contrast. All CT scans are performed using dose optimization technique as appropriate and may include automated exposure control or mA/KV adjustment according to patient size. FINDINGS: No intracranial hemorrhage, mass, edema or shift of mid-line structures. No acute cortical based infarction. No cortical edema or sulcal effacement. Patient has minimal atrophy and chronic is chemic change for age. Findings are similar to comparison. No abnormal extra-axial fluid collections. Ventricles are in proportion to volume loss. Arterial and physiologic calcifications are present. Mastoid air cells and visualized portions of the paranasal sinuses are clear. No acute bony findings. IMPRESSION: Negative non-contrast CT head examination for acute finding. No significant change from comparison. Chronic ischemic change is minimal but nonhemorrhagic CVA can always be masked in this setting.
--- NOTE | 2021-01-24 14:20 | RAD REPORT ---
EXAM DESCRIPTION: RAD - Chest Single View - 01/24/2021 1:42 pm CLINICAL HISTORY: syncope COMPARISON: April 2004 TECHNIQUE: AP portable chest image was obtained 01/24/2021 1:42 pm . FINDINGS: Prominent fibrotic lung pattern is present accentuated by low lung volumes. No focal conso lidation, mass or significant failure finding. Severity of chronic disease could mask early edema or infiltrate. Heart and vasculature are normal. No measurable pleural effusion and no pneumothorax. No acute bony abnormality seen. Prominent right shoulder joint degenerative changes are present showing some progre ssion since the prior chest film. No acute aortic finding. IMPRESSION: No acute cardiopulmonary process. Prominent fibrotic lung pattern is not substantially different from comparison. Severity of baseline disease could mask mild edema or infiltrate.
[2021-01-24 14:41] LABS: Absolute Lymphocytes (CBC) 0.7 K/uL (0.7-4.9); Basophils % 0.3 % (0-1.3); Hematocrit 34.5 % (36.0-45.0); MPV 8.8 fL (7.6-11.3); RBC Red Blood Cell Count 3.66 M/uL (3.86-4.86)
[2021-01-24 14:42] LABS: Protime INR 1.01
[2021-01-24 15:05] LABS: ALT/SGPT 25 U/L (12-78); AST/SGOT 18 U/L (15-37); Albumin 3.5 g/dL (3.4-5.0); Alkaline Phosphatase 86 U/L (45-117); BUN Blood Urea Nitrogen 16 mg/dL (7-18); Bicarbonate 29 mmol/L (21-32); Bilirubin Direct 0.2 mg/dL (0-0.2); Bilirubin Total 0.6 mg/dL (0.2-1.0); Glucose Level 114 mg/dL (74-106); NT PRO-BNP 136 pg/mL (<450); Potassium 3.7 mmol/L (3.5-5.1); Protein, Total 7.1 g/dL (6.4-8.2); Sodium Level 136 mmol/L (136-145); Troponin (Emerg Dept Use Only) < 0.02 ng/mL (0.0-0.045)
--- NOTE | 2021-01-24 16:20 | EDPHYS ---
Physician Documentation [facility] Name: Mary Oakley Age: 89 yrs Sex: Female : 1930 Arrival Date: 01/24/2021 Time: 13:05 Bed 8 Private MD: ED Physician Mauri Tang HPI: 01/24 13:19 This 89 yrs old Female presents to ER via EMS with complaints of Syncope. pm1 13:19 The patient has experienced syncope. Onset: The symptoms/episode began/occurred just pm1 prior to arrival. Duration: This was a single episode. Context: occurred at home, occurred while the patient was eating, Just prior to the episode the patient experienced no apparent symptoms. Associated injury: The patient did not suffer any apparent associated injury. Associated signs and symptoms: The patient has no apparent associated signs or symptoms. Current symptoms: Currently, the patient is not experiencing any symptoms. The patient has experienced similar episodes in the past, multiple times, Patient with history of vasovagal syndrome. The patient has not recently seen a physician. Patient was eating and then had 1 episode of vomiting prior to passing out. No choking. Patient without any complaints with the moment. No injury related to passing out. Historical: - Allergies: 13:14 PENICILLINS; sm5 13:14 Sulfa (Sulfonamide Antibiotics); sm5 - Home Meds: 13:14 Actonel 35 mg Oral tab 1 tab once wkly [Active]; levothyroxine 88 mcg oral cap 1 cap sm5 once daily for hypothyroidism [Active]; pantoprazole 40 mg oral TbEC 2 tabs once daily for gastroesophageal reflux disease [Active]; B12 sublingual daily [Active]; biotin Oral daily [Active]; calcium oxide daily [Active]; Co Q-10 Oral daily [Active]; cranberry Oral nightly [Active]; Vitamin D3 Oral daily [Active]; Kam Red daily [Active]; gabapentin 600 mg oral tab 1 tab 3 times per day [Active]; Magnesium Oxide Oral daily [Active]; ropinirole 1 mg oral tab 1 tab bedtime as needed [Active]; aspirin 81 mg oral tab 81 mg nightly [Active]; Zetia 10 mg Oral tab 1 tab once daily [Active]; pravastatin 40 mg oral tab 1 tab once daily for hypercholesterolemia [Active]; venlafaxine 150 mg oral cp24 1 cap once daily for major depressive disorder [Active]; estracde cream three times a week [Active]; QNASL nasal 2 sprays BID [Active]; - PMHx: 13:14 Depression; GERD; Hyperlipidemia; Hypothyroidism; vasovagal syncope; UTI; sm5 - Immunization history:: Client reports receiving the 2nd dose of the Covid vaccine. - Social history:: Smoking status: Patient denies any tobacco usage or history of. ROS: 13:19 Constitutional: Negative for fever, chills, and weight loss, Cardiovascular: Negative pm1 for chest pain, palpitations, and edema, Respiratory: Negative for shortness of breath, cough, wheezing, and pleuritic chest pain. 13:19 Back: Negative for injury and pain, : Negative for injury, bleeding, discharge, and swelling, MS/Extremity: Negative for injury and deformity, Skin: Negative for injury, rash, and discoloration. 13:19 Abdomen/GI: Positive for vomiting, X1, Negative for abdominal pain, diarrhea, constipation. 13:19 Neuro: Positive for syncope, Negative for weakness. 13:19 All other systems are negative. Exam: 13:19 Abdomen/GI: Exam negative for acute changes, Inspection: abdomen appears normal, pm1 Palpation: abdomen is soft and non-tender. 13:19 Constitutional: This is a well developed, well nourished patient who is awake, alert, and in no acute distress. Head/Face: Normocephalic, atraumatic. 13:19 Back: No spinal tenderness. No costovertebral tenderness. Full range of motion. Skin: Warm, dry with normal turgor. Normal color with no rashes, no lesions, and no evidence of cellulitis. MS/ Extremity: Pulses equal, no cyanosis. Neurovascular intact. Full, normal range of motion. 13:19 Cardiovascular: Exam negative for acute changes, Rate: normal, Rhythm: regular, Pulses: no pulse deficits are appreciated. 13:19 Respiratory: Exam negative for acute changes, respiratory distress, shortness of breath, Breath sounds: are clear throughout. 13:19 Neuro: Exam negative for acute changes, Orientation: is normal, Mentation: is normal, Motor: is normal, moves all fours, Sensation: is normal, no obvious gross deficits. Vital Signs: 13:09 BP 115 / 54; Pulse 59; Resp 17 S; Temp 97.5; Pulse Ox 98% on R/A; Weight 80.74 kg; 5 Height 5 ft. 7 in. (170.18 cm); 13:14 BP 115 / 54; Pulse 59; Resp 17; Pulse Ox 98% ; 5 15:16 BP 137 / 67; Pulse 55; Resp 18; Pulse Ox 95% ; 5 13:09 Body Mass Index 27.88 (80.74 kg, 170.18 cm) [facility] MDM: 13:19 Patient medically screened. pm1 16:18 Data reviewed: vital signs. Data interpreted: Pulse oximetry: on room air is 95 %. pm1 Interpretation: normal. Counseling: I had a detailed discussion with the patient and/or guardian regarding: the historical points, exam findings, and any diagnostic results supporting the discharge/admit diagnosis, lab results, radiology results, the need for outpatient follow up, to return to the emergency department if symptoms worsen or persist or if there are any questions or concerns that arise at home. 01/24 13:19 Order name: Basic Metabolic Panel; Complete Time: 15:15 pm1 01/24 13:19 Order name: CBC with Diff; Complete Time: 15:15 pm1 01/24 13:19 Order name: LFT's; Complete Time: 15:15 pm1 01/24 13:19 Order name: Magnesium; Complete Time: 15:15 pm1 01/24 13:19 Order name: NT PRO-BNP; Complete Time: 15:15 pm1 01/24 13:19 Order name: PT-INR; Complete Time: 15:15 pm1 01/24 13:19 Order name: Troponin (emerg Dept Use Only); Complete Time: 15:15 pm1 01/24 13:19 Order name: XRAY Chest (1 view); Complete Time: 14:21 pm1 01/24 13:19 Order name: EKG; Complete Time: 13:20 pm1 01/24 13:19 Order name: Cardiac monitoring; Complete Time: 13:30 pm1 01/24 13:19 Order name: EKG - Nurse/Tech; Complete Time: 14:13 pm1 01/24 13:19 Order name: IV Saline Lock; Complete Time: 14:04 pm1 01/24 13:19 Order name: Labs collected and sent; Complete Time: 14:04 pm1 01/24 13:19 Order name: CT Head Brain wo Cont; Complete Time: 13:48 pm1 01/24 13:19 Order name: O2 Per Protocol; Complete Time: 14:07 pm1 01/24 13:19 Order name: O2 Sat Monitoring; Complete Time: 13:30 pm1 01/24 14:20 Order name: Labs - recollect needed: recollect lavender and blue top; Complete Time: bd 14:28 Administered Medications: No medications were administered Disposition: 01/25 08:13 Co-signature as Attending Physician, Mauri Tang MD I agree with the assessment and kdr plan of care. Disposition Summary: 01/24/21 16:19 Discharge Ordered Location: Home pm1 Problem: new pm1 Symptoms: have improved pm1 Condition: Stable pm1 Diagnosis - Syncope pm1 Followup: pm1 - With: Emergency Department - When: As needed - Reason: Worsening of condition Followup: pm1 - With: Private Physician - When: 2 - 3 days - Reason: Recheck today's complaints, Continuance of care, Re-evaluation by your physician Discharge Instructions: - Discharge Summary Sheet pm1 - Syncope pm1 Forms: - Medication Reconciliation Form pm1 - Thank You Letter pm1 - Antibiotic Education pm1 - Prescription Opioid Use pm1 Signatures: Dispatcher [employer] EDMS Nicci Bryan Kevin, MD MD kdr Marinas, Patrick, NP MARINE TOWER OPERATOR pm1 Gina Luevano, RN RN sm5
--- NOTE | 2021-01-24 16:20 | ER ---
Nurse's Notes [facility] Name: Mary Oakley Age: 89 yrs Sex: Female : 1930 Arrival Date: 01/24/2021 Time: 13:05 Bed 8 Private MD: Diagnosis: Syncope Presentation: 01/24 13:09 Chief complaint: EMS states: pt is from [facility] and was eating lunch when she sm5 vomited and then had a syncopal episode lasting a few seconds. EMS states pt has hx of vasovagal syncope. Coronavirus screen: Vaccine status: Patient reports receiving the 2nd dose of the covid vaccine. Ebola Screen: No symptoms or risks identified at this time. Initial Sepsis Screen: Does the patient meet any 2 criteria? No. Patient's initial sepsis screen is negative. Does the patient have a suspected source of infection? No. Patient's initial sepsis screen is negative. Risk Assessment: Do you want to hurt yourself or someone else? Patient reports no desire to harm self or others. Onset of symptoms was January 24, 2021. 13:09 Method Of Arrival: EMS: [facility] 13:09 Acuity: YOLIS 3 sm5 Triage Assessment: 13:14 General: Appears in no apparent distress. comfortable, Behavior is calm, cooperative. sm5 Pain: Denies pain. Neuro: Level of Consciousness is awake, alert, obeys commands, Oriented to person, place, time, situation, Appropriate for age Data Security Administrator are Speech is normal, Reports a syncopal episode. Cardiovascular: Edema BLE Rhythm is regular. Respiratory: Airway is patent Trachea midline Respiratory effort is even, unlabored. GI: Reports gaseousness. Historical: - Allergies: 13:14 PENICILLINS; sm5 13:14 Sulfa (Sulfonamide Antibiotics); sm5 - Home Meds: 13:14 Actonel 35 mg Oral tab 1 tab once wkly [Active]; levothyroxine 88 mcg oral cap 1 cap sm5 once daily for hypothyroidism [Active]; pantoprazole 40 mg oral TbEC 2 tabs once daily for gastroesophageal reflux disease [Active]; B12 sublingual daily [Active]; biotin Oral daily [Active]; calcium oxide daily [Active]; Co Q-10 Oral daily [Active]; cranberry Oral nightly [Active]; Vitamin D3 Oral daily [Active]; Kam Red daily [Active]; gabapentin 600 mg oral tab 1 tab 3 times per day [Active]; Magnesium Oxide Oral daily [Active]; ropinirole 1 mg oral tab 1 tab bedtime as needed [Active]; aspirin 81 mg oral tab 81 mg nightly [Active]; Zetia 10 mg Oral tab 1 tab once daily [Active]; pravastatin 40 mg oral tab 1 tab once daily for hypercholesterolemia [Active]; venlafaxine 150 mg oral cp24 1 cap once daily for major depressive disorder [Active]; estracde cream three times a week [Active]; QNASL nasal 2 sprays BID [Active]; - PMHx: 13:14 Depression; GERD; Hyperlipidemia; Hypothyroidism; vasovagal syncope; UTI; sm5 - Immunization history:: Client reports receiving the 2nd dose of the Covid vaccine. - Social history:: Smoking status: Patient denies any tobacco usage or history of. Screenin:28 Abuse screen: Denies threats or abuse. Nutritional screening: No deficits noted. [facility] Tuberculosis screening: No symptoms or risk factors identified. Fall Risk No fall in past 12 months (0 pts). Secondary diagnosis (15 points) No IV (0 pts). Ambulatory Aid- Crutches/Cane/Walker (15 pts). Gait- Normal/Bed Rest/Wheelchair (0 pts) Mental Status- Oriented to own ability (0 pts). Total Maldonado Fall Scale indicates Low Risk Score (25-44 pts). Side Rails Up X 2. Assessment: 13:52 Neuro: Level of Consciousness is awake, alert, obeys commands, Oriented to person, [facility] place, time, situation, Appropriate for age. Cardiovascular: Rhythm is sinus bradycardia. Respiratory: Airway is patent Trachea midline Respiratory effort is even, unlabored. Vital Signs: 13:09 BP 115 / 54; Pulse 59; Resp 17 S; Temp 97.5; Pulse Ox 98% on R/A; Weight 80.74 kg; 5 Height 5 ft. 7 in. (170.18 cm); 13:14 BP 115 / 54; Pulse 59; Resp 17; Pulse Ox 98% ; 5 15:16 BP 137 / 67; Pulse 55; Resp 18; Pulse Ox 95% ; 5 13:09 Body Mass Index 27.88 (80.74 kg, 170.18 cm) sm5 ED Course: 13:05 Patient arrived in ED. sm5 13:09 Gina Luevano, RN is Primary Nurse. sm5 13:14 Triage completed. sm5 13:16 Mansoor Bowie NP is PHCP. pm1 13:16 Mauri Tang MD is Attending Physician. pm1 13:29 CT Head Brain wo Cont In Process Unspecified. EDMS 13:29 Arm band placed on right wrist. sm5 13:41 XRAY Chest (1 view) In Process Unspecified. EDMS 13:52 Patient has correct armband on for positive identification. Bed in low position. Call [facility] light in reach. actuarial mathematician on. Pulse ox on. NIBP on. Door closed. Warm blanket given. 14:05 Inserted saline lock: 20 gauge in left antecubital area, using aseptic technique. 5 14:23 EKG done, by agricultural technical officer. tp1 16:51 No provider procedures requiring assistance completed. IV discontinued, intact, iw bleeding controlled, No redness/swelling at site. Pressure dressing applied. Administered Medications: No medications were administered Outcome: 16:19 Discharge ordered by . pm1 16:51 Discharged to home via wheelchair. iw 16:51 Condition: good 16:51 Discharge instructions given to patient, Instructed on discharge instructions, follow up and referral plans. Demonstrated understanding of instructions, follow-up care. 16:57 Patient left the ED. iw Signatures: Dispatcher [employer] Daphne Howell RN RN Mansoor Bowie, ROSA RN INTERNAL MEDICINE pm1 Danielle Riddle tp1 Gina Luevano RN RN [facility]
[2021-01-24 17:04] VITALS: TEMP 97.5
[2021-01-24 17:07] VITALS: BP 137/67; O2SAT 95
--- NOTE | 2021-01-25 08:04 | EKG ---
Test Date: 2021-01-24 Test Time: 14:19:20 Residential Living Assistant: STACEY MEASUREMENT RESULTS: Intervals: Rate: 55 NE: 182 QRSD: 90 QT: 458 QTc: 438 [place]: P: 58 NE: 182 QRS: 31 T: 46 INTERPRETIVE STATEMENTS: Sinus bradycardia Possible Left atrial enlargement Left ventricular hypertrophy Abnormal ECG Compared to ECG 03/30/2015 17:45:06 Left ventricular hypertrophy now present Sinus rhythm no longer present Electronically Signed On 01-25-21 08:03:10 HAND III CUTTER by Constantine Painter
== END 2021-01-24 16:57 | disposition home or self-care (01) ==
LOC: ER 13:04
DX: R55 Syncope and collapse (principal); E03.9 Hypothyroidism, unspecified; F32.A Depression, unspecified; E78.5 Hyperlipidemia, unspecified; Z79.82 Long term (current) use of aspirin
CPT/HCPCS: 36415; 70450; 71045; 80048; 80076; 83735; 83880; 84484; 85025; 85610; 93005; 99284

== ENCOUNTER 2021-04-13 11:46 | Emergency (ER) | payer OTHER ==
--- OUTSIDE RECORDS SUMMARY | 2021-04-13 11:49 | XMS REPORT | Continuity of Care Document ---
:[address] [facility] t Address [address] [place] [address] Care Team Providers Name Role Phone Precious Cardona Primary Care Physician Douglas Cardona Attending Clinician Unavailable Gee LOPEZ Attending Clinician Shoshana PRIETO Attending Clinician GEE Attending Clinician Unavailable GEE Attending Clinician Unavailable JESUS Attending Clinician Unavailable Payers Payer Name Policy Type Policy Number Effective Date Expiration Date S kiley [facility] MEDICARE [id number] 2020 ADVANTAGE 00:00:00 Problems Condition Condition Condition [...] from the original. Discussed with Ms. Oakley gingerat rachell treatment options for osteoarth ritis. Treatment [...] 00:00: 00 Guillain Guillain Disease Active [facility] Marino?syndr Marino?syndr 11-03 He alth ome ome 00:00: 00 [...] Univers Drugs to drug ity of (finding [place] ) Physici ans Sulfa Adverse Active Info Not [facility] Reaction Available [facility]ics PCN Adverse Active Info Not [facility] Reaction Available [facility] Penicill Allergy Active Univers ins to drug ity of (finding [place] ) Physici ans Family History Family Member Diagnosis Comments Start Date Stop Date Source Unknown Family Family history Family History Un iversity of Member of arthritis [place] Physic ians Grandfather Family history Universit y of of diabetes [place] Physici ans mellitus Grandmother Family history Universit y of of diabetes [place] [facility] mellitus Father Family history [facility] malignant [place] [facility] i[facility] neoplasm Brother Family history [facility] Physic ians neoplasm Social History Social Habit Start Date Stop Date Quantity Comments Source Exposure to Not sure [facility] SARS-CoV-2 (event) Alcohol intake 2020-12-28 2020-12-28 Lifetime [facility] 00:00:00 00:00:00 non-drinker (finding) Tobacco use and 2020-11-02 2020-11-02 Smokeless tobacco [facility] exposure 00:00:00 00:00:00 non-user Sex Assigned At 1930 1932 [facility] 00:00:00 00:00:00 Smoking Status Start Date Stop Date Source Never smoked tobacco [facility] Medications Ordered Filled Start Stop Current Ordering Indication Dosage Frequency Signature Comments Components Source Medication Medication Date Date Medication? Clinician (SIG) Name Name liam 2020-03- No [id number] 80mg [facility] ne 12-30 Health acetonide 13:15: 13:15 (Kenalog-40 31 :00 ) injection 80 mg triamcinolo 2020-03- No [id number] 80mg 80 mg, [facility] ne 12-30 [facility] acetonide 13:15: 13:15 culpaola, (Kenalog-40 31 :00 Once PRN ) injection Procedure, 80 mg Starting on Sat12/30/20 at 0815, For 1 dose bupivacaine 2020-03- No [id number] 1mL 1 mL, UT (Marcaine) 12-30 Injection, He alth 0.25 % 13:15: 13:15 Once PRN injection 1 31 :00 Procedure, mL Starting on Sat12/30/20 at 0815, For 1 dose bupivacaine 2020-03 202- No [id number] 1mL [facility] (Marcaine) 012-30 Health 0.25 % 13:15: 13:15 injection 1 31 :00 mL ezetimibe 2020-0 Yes 1 (one) [facility] (Zetia) 10 11-02 time each Heal th MG tablet 11:07: day at the same time. lansoprazol Yes TAKE 1 UT e 11-02 CAPSULE Health (Prevacid) 11:07: EVERY [address] 47 MORNING capsule DAILY. ezetimibe 2020-0 Yes 1 (one) UT (Zetia) 10 11-02 time each Heal th MG tablet 11:07: day at the same time. lansoprazol Yes TAKE 1 UT e 11-02 CAPSULE Health (Prevacid) 11:07: EVERY [address] 47 MORNING capsule DAILY. ezetimibe 2020-0 Yes 1 (one) UT (Zetia) 10 11-02 time each Heal th MG tablet 11:07: day at the same time. lansoprazol Yes TAKE 1 UT e 11-02 CAPSULE Health (Prevacid) 11:07: EVERY [address] 47 MORNING capsule DAILY. ezetimibe 2020-0 Yes 1 (one) UT (Zetia) 10 11-02 time each Heal th MG tablet 11:07: day at the same time. lansoprazol Yes TAKE 1 UT e 11-02 CAPSULE Health (Prevacid) 11:07: EVERY [address] 47 MORNING capsule DAILY. aspirin Yes TAKE 1 UT (Aspirin 11-02 TABLET Health Adult Low 11:07: DAILY. Strength) 46 81 MG EC tablet benzonatate Yes TAKE 1 UT (Tessalon) 11-02 CAPSULE 3 Heal th 200 MG 11:07: TIMES capsule 46 DAILY NEEDED. clonazePAM Yes 1mg Take 1 mg UT (KlonoPIN) [...] th 1 MG tablet 11:07: 46 coenzyme 202-0 Yes Take by UT Q-10 200 MG 11-02 mouth. Health capsule 11:07: 46 cycloSPORIN 2021-0 Yes Q12H every 12 UT E 11-02 () Health (Restasis) 11:07: hours. 0.05 % 46 ophthalmic emulsion folic acid 2020-0 Yes UT (Folvite) 11-02 Health 400 MCG 11:07: tablet 46 aspirin 2020-0 Yes TAKE 1 UT (Aspirin 11-02 TABLET Health Adult Low 11:07: DAILY. Strength) 46 81 MG EC tablet benzonatate 2020-0 Yes TAKE 1 UT (Tessalon) 11-02 CAPSULE 3 Heal th 200 MG 11:07: TIMES capsule 46 DAILY NEEDED. clonazePAM 2021-0 Yes 1mg Take 1 mg UT (KlonoPIN) 11-02 by mouth. Heal th 1 MG tablet 11:07: 46 coenzyme 202-0 Yes Take by UT Q-10 200 MG 11-02 mouth. Health capsule 11:07: 46 cycloSPORIN 2021-0 Yes Q12H every 12 UT E 11-02 () Health (Restasis) 11:07: hours. 0.05 % 46 ophthalmic emulsion folic acid 2020-0 Yes UT (Folvite) 11-02 Health 400 MCG 11:07: tablet 46 aspirin 2021-0 Yes TAKE 1 UT (Aspirin - TABLET [...] Health 400 MCG 11:07: tablet 46 risedronate 2020-0 Yes 1 tablet UT (Actonel) 11-02 Health [...] ON EMPTY STOMACH IN THE MORNING levothyroxi 0 Yes TAKE 1 UT ne 6-17 TABLET BY Health (Synthroid, 00:00: MOUTH Levoxyl) 88 00 EVERY DAY MCG tablet ON EMPTY STOMACH IN THE MORNING levothyroxi 0 Yes TAKE 1 UT ne 6-17 TABLET BY Health (Synthroid, 00:00: MOUTH Levoxyl) 88 00 EVERY DAY MCG tablet ON EMPTY STOMACH IN THE MORNING levothyroxi 0 Yes TAKE 1 UT ne 6-17 TABLET BY Health (Synthroid, 00:00: MOUTH Levoxyl) 88 00 EVERY DAY MCG tablet ON EMPTY STOMACH IN THE MORNING alfuzosin Yes TAKE 1 UT (Uroxatral) 4-14 TABLET BY Hea lth 10 MG 24 hr 00:00: MOUTH tablet 00 IMMEDIATEL Y AFTER THE SAME MEAL ONCE A DAY AT BEDTIME alfuzosin 0 Yes TAKE 1 UT (Uroxatral) 4-14 TABLET BY Hea lth 10 MG 24 hr 00:00: MOUTH tablet 00 IMMEDIATEL Y AFTER THE SAME MEAL ONCE A DAY AT BEDTIME alfuzosin 0 Yes TAKE 1 UT (Uroxatral) 4-14 TABLET BY Hea lth 10 MG 24 hr 00:00: MOUTH tablet 00 IMMEDIATEL Y AFTER THE SAME MEAL ONCE A DAY AT BEDTIME alfuzosin 0 Yes TAKE 1 UT (Uroxatral) 4-14 TABLET BY Hea lth 10 MG 24 hr 00:00: MOUTH tablet 00 IMMEDIATEL Y AFTER THE SAME MEAL ONCE A DAY AT BEDTIME alfuzosin 2020-0 2020- No 1 tablet UT (Uroxatral) 4-14 11-11 immediatel H ealth 10 MG 24 hr 00:00: 05:59 y after tablet 00 :00 the same meal alfuzosin 2020-0 2021- No 1 tablet UT (Uroxatral) 4-14 11-11 immediatel H ealth 10 MG 24 hr 00:00: 05:59 y after tablet 00 :00 the same meal alfuzosin 2020- No 1 tablet UT (Uroxatral) 06-15-11 immediatel H ealth 10 MG 24 hr 00:00: 05:59 y after tablet 00 :00 the same meal alfuzosin 2020- No 1 tablet UT (Uroxatral) 06-15-11 immediatel H ealth 10 MG 24 hr [...] TAKE 1 UT ne 1-25 TABLET BY [facility] (Synthroid, 00:00: MOUTH Levoxyl) 88 00 EVERY [...] [facility] Venlafaxine Venlafaxine Yes [...] Tablet Oral Tablet TABLET ity of DAILY. [place] Physici ans Pravastatin Pravastatin Yes TAKE 1 Univers Sodium 40 Sodium 40 TABLET AT ity of MG Oral MG Oral BEDTIME. [place] Tablet Tablet Physici ans Cetirizine Cetirizine Yes 1 TAKE 1 U nivers HCl - 10 MG HCl - 10 MG TABLET AT ity of Oral Tablet Oral Tablet BEDTIME. [place] Physici ans Estrace 0.1 Estrace 0.1 Yes [...] MG CAPSULE ity of Oral Oral TWICE [place] Capsule Capsule DAILY Physici Delayed Delayed ans [...] MG Oral i ty of Tablet Tablet [place] Physici ans B Complex + B Complex + Yes U nivers C TR TBCR C TR TBCR ity o f [place] Physici ans Calcium Calcium Yes Univers TABS TABS ity of [place] Physici ans rOPINIRole rOPINIRole Yes Q0.3333D TAKE 1 Univers HCl - 0.25 HCl - 0.25 TABLET 3 ity of MG Oral MG Oral TIMES [place] Tablet Tablet DAILY. Physici ans Benzonatate Benzonatate Yes TAKE 1 Univers 200 MG Oral 200 MG Oral CAPSULE 3 ity of Capsule Capsule TIMES [place] DAILY Physici NEEDED. ans Lutein TABS Lutein TABS Yes 1 Q0.5D TAKE 1 Univers TABLET ity of TWICE [place] DAILY Physici ans Vitamin D Vitamin D Yes Unive rs TABS TABS ity of [place] Physici ans Biotin CAPS Biotin CAPS Yes U nivers ity of [place] Physici ans Tylenol Tylenol Yes Univers Sinus CAPS Sinus CAPS ity of [place] Physici ans Ibuprofen Ibuprofen Yes Unive rs TABS TABS ity of [place] Physici ans Cranberry Cranberry Yes Unive rs Plus Plus ity of Vitamin C Vitamin C [place] -3 Physi ci MG-UNIT MG-UNIT ans Oral Oral Capsule Capsule Probiotic Probiotic Yes Unive rs CAPS CAPS ity of [place] Physici ans Immunizations Ordered Immunization Filled Immunization Date Status Commen ts Source Name Name Covid-19 Pfizer 2020-10-31 Completed [facility] SARS-CoV-2 Vaccination 00:00:00 Covid-19 Pfizer 2020-10-10 Completed [facility] SARS-CoV-2 Vaccination 00:00:00 Vital Signs Vital Name Observation Time Observation Value Comments Source Body height 2020-12-28 170.2 cm [facility] 20:02:00 Body weight 2020-12-28 81.647 kg [facility] 20:02:00 BMI 2020-12-28 28.19 kg/m2 [facility] 20:02:00 Systolic blood 2020-11-02 171 mm[Hg] [facility] pressure 16:00:00 Diastolic blood 2020-11-02 77 mm[Hg] [facility] pressure 16:00:00 Heart rate 2020-11-02 72 /min [facility] 16:00:00 Body temperature 2020-11-02 36.28 Twyla [facility] 16:00:00 Body height 2020-11-02 170.2 cm [facility] 16:00:00 Body weight 2020-11-02 85.276 kg [facility] 16:00:00 BMI 2020-11-02 29.44 kg/m2 [facility] 16:00:00 Oxygen saturation 2020-11-02 97 /min [facility] in Arterial blood 16:00:00 by Pulse oximetry BP Systolic 2018-01-03 125 mm[Hg] Location: [facility] :51:00 Position: [place] Physician s Sitting BP Diastolic 2018-01-03 63 mm[Hg] Location: [facility] 09:51:00 Position: [place] Physician s Sitting Weight 2018-01-03 179 [lb_av] [facility] 09:51:00 [place] Physician s Body Mass Index 2018-01-03 28.04 kg/m2 University o f Calculated 09:51:00 [place] Physician s Height 2018-01-03 67 [in_us] [facility] 09:51:00 [place] Physician s Heart Rate 2018-01-03 70 /min [facility] 09:51:00 [place] Physician s Height 2017-02-13 68 [in_us] [facility] 14:20:00 [place] Physician s Procedures Procedure Date / Time Performing Clinician Source Performed XR KNEE 3 VIEWS BILATERAL 2020-12-28 20:47:53 Gee [facility] [place] ARTHROCENTESIS 2020-12-28 19:15:00 Gee [facility] ASPIR&/INJ MAJOR JT/BURSA W/O US CV US ANKLE / BRACHIAL 2020-11-02 16:01:30 ShoshanaCarroll [place] [facility]th INDICES EXTREMITY COMPLETE MR Shoulder wo contrast 2018-03-21 00:00:00 [facility] [id number] Physicians [U] XRAY KNEE 3 VWS LEFT 2018-01-03 00:00:00 [facility] [id number] Physicians [U] XRAY SHOULDER MIN 2 2018-01-03 00:00:00 [facility] VWS RIGHT [id number] Physicians MRI Spine lumbar wo 2017-02-13 00:00:00 [facility] contrast [id number] Physicians History of Hysterectomy [facility] Physicians History of Abdominal [facility] Surgery Physicians History of Breast Surgery [facility] Mastectomy Physicians History of Hip Surgery [facility] Right Physicians History of Cataract [facility] Extraction Physicians History of Eye Surgery [facility] Physicians Encounters Start End Encounter Admission Attending Care Care Encounter Source Date/Time Date/Time Type Type Clinicians Facility Department ID 2021-03-29 Outpatient Cardona, Na STLMLC STLMLC [id number] [facility] 14:38[facility] 2021-03-29 Outpatient Cardona, Na STLMLC STLMLC [id number] [facility] 14:04:23 [id number] [facility] 2021-03-29 Outpatient Cardona, Na STLMLC STLMLC [id number] [facility] 13:28:42 [id number] [facility] 2021-03-29 Outpatient Cardona, Na STLMLC STLMLC [id number] [facility] 13:23:41 [id number] [facility] 2021-03-29 Outpatient Brendan, Na STLMLC STLMLC [id number] [facility] 12:51:23 [id number] [facility] 2021-03-29 Outpatient Brendan, Na STLMLC STLMLC [id number] [facility] 12:32:42 [id number] [facility] 2021-03-29 Outpatient Brendan, Na STLMLC STLMLC [id number] [facility] 11:36:03 [id number] [facility] 2021-03-29 Outpatient Brendan, Na STLMLC STLMLC [id number] [facility] 11:16:39 [id number] [facility] 2021-03-29 Outpatient Brendan, Na STLMLC STLMLC [id number] [facility] 11:12:26 [id number] [facility] 2020-12-28 Outpatient [facility] [id number] [place] 15:35:51 Health 2020-12-28 Outpatient [facility] [id number] [place] 15:30:59 Health 2020-12-28 Outpatient [facility] [id number] [place] 15:30:59 Health 2020-12-27 Outpatient [facility] [id number] [place] 21:10:37 Health 2020-11-02 Outpatient [facility] [id number] [place] 10:38:31 Health 2021-03-28 2021-03-28 ambulatory [facility]MLC [facility] [id number] [facility] 2021-03-21 2021-03-21 ambulatory [facility]LMLC [facility] [id number] [facility] 2021-03-14 2021-03-14 ambulatory [facility]LMLC [facility] [id number] [facility] 2021-02-13 2021-02-13 ambulatory [facility]MLC [facility] [id number] [facility] 2021-02-09 2021-02-09 ambulatory [facility]MLC [facility]C [id number] [facility] 2021-01-30 2021-01-30 ambulatory [facility]MLC [facility] [id number] [facility] 2021-01-25 2021-01-25 ambulatory [facility]MLC [facility] [id number] [facility] 2021-01-15 2021-01-15 ambulatory [facility]C STLC [id number] [facility] 2020-12-28 2020-12-28 Office JUANA Flynn [facility] [id number] [place] 13:32:04 15:53:21 [id number] [place] 0 [id number] 2020-12-27 2020-12-27 Orders JUANA Flynn [facility] [id number] [place] 00:00:00 00:00:00 Only [facility]il [facility]ICHE[id number] [facility] [id number] PLA[address] 1 [id number] 2020-12-26 2020-12-26 Outpatient [facility]MLC STLC [id number] [facility] 2020-12-05 2020-12-05 Outpatient [facility]MLC STLC [id number] [facility] 2020-11-02 2020-11-02 Office Carroll Anna 6400 [id number] [place] 10:05:02 10:35:02 Visit AIDAN ARZATE [id number] Health [id number] 2020-10-03 2020-10-03 Outpatient [facility]MLC [facility] [id number] [facility] 2020-09-22 2020-09-22 Outpatient [facility]MLC [facility] [id number] [facility] 2020-08-23 2020-08-23 Outpatient [facility] [id number] [facility] 2020-07-22 2020-07-22 Outpatient [facility] [id number] [facility] 2020-07-04 2020-07-04 Outpatient [facility]MLC [facility] [id number] [facility] 2020-06-20 2020-06-20 Outpatient [facility]MLC [facility] [id number] [facility] 2020-06-15 2020-06-15 Outpatient [facility] [id number] [facility] 2020-06-15 2020-06-15 Outpatient [facility] [id number] [facility] 2020-05-27 2020-05-27 Outpatient [facility] [id number] [facility] 2020-04-25 2020-04-25 Outpatient [facility] [id number] [facility] 2020-04-15 2020-04-15 Outpatient [facility] [id number] [facility] 2020-04-15 2020-04-15 Outpatient [facility] [id number] [facility] 2020-04-14 2020-04-14 Outpatient [facility] [id number] [facility] 2020-04-11 2020-04-11 Outpatient [facility] [id number] [facility] 2020-04-01 2020-04-01 Outpatient [facility]MLC [facility] [id number] [facility] 2020-03-29 2020-03-29 Outpatient [facility]C [facility] [id number] [facility] 2020-03-02 2020-03-02 Outpatient [facility]C [facility] [id number] [facility] 2020-02-29 2020-02-29 Outpatient [facility] [id number] [facility] 2020-01-07 2020-01-07 Outpatient [facility] [id number] [facility] 2019-12-22 2019-12-22 Outpatient [facility] [id number] [facility] 2019-12-16 2019-12-16 Outpatient [facility]C [facility] [id number] [facility] 2019-10-12 2019-10-12 [facility] [id number] [facility] 11:47:00 11:47:00 t Specialty/U Dafne kes - Specialty rology Memori a /Urology Clinic l Clinic Outpati ent Clinics 2019-09-30 2019-09-30 [facility] [id number] [facility] 11:00:00 11:00:00 t Specialty/U Dafne kes - Specialty rology Memori a /Urology Clinic l Clinic Outpati ent Clinics 2019-09-18 2019-09-18 Appointmen JUANA FLYNN [facility] [id number] [facility] 13:00:00 13:00:00 jordyn LEY - Surjit forbes of GEE, SCOUT LEASER II Liz Cardenas SCOUT LEASER ans 2019-09-08 2019-09-08 [facility] [id number] [facility] 14:40:00 14:40:00 t Kramer [employer] s - [employer] [facility] Family Medicine l Medicine Outpati ent Clinics 2019-06-04 2019-06-04 [facility] [id number] 10:40:00 10:40:00 t Kramer [employer] - [employer] [facility] l Medicine Outpati ent Clinics 2019-05-08 2019-05-08 [facility] [id number] [facility] 11:20:00 11:20:00 t [employer] s - [employer] [facility] Family Medicine Medicine Outpati ent Clinics 2019-04-13 2019-04-13 [facility] [id number] 09:40:00 09:40:00 t [employer] s - [employer] [facility] Family Medicine l Medicine Outpati ent Clinics 2019-04-01 2019-04-01 [facility] [id number] 10:30:00 10:30:00 t Specialty/U Dafne kes - Specialty rology Memori a /Urology Clinic l Clinic Outpati ent Clinics 2019-03-11 2019-03-11 [facility] [id number] 09:23:00 09:23:00 t Specialty/U Dafne kes - Specialty rology Memori a /Urology Clinic l Clinic Outpati ent Clinics 2019-03-05 2019-03-05 [facility] [id number] [facility] 10:40:00 10:40:00 t [employer] [facility] Medicine Outpati ent Clinics 2019-02-10 2019-02-10 [facility] [id number] [facility] 11:33:00 11:33:00 t Kramer [employer] [facility] l Medicine Outpati ent Clinics 2019-01-26 2019-01-26 [facility] [id number] 09:27:00 09:27:00 t Kramer [employer] s - Drive [facility] Outpati ent Clinics 2019-01-21 2019-01-21 [facility] [id number] [facility] 10:27:00 10:27:00 t Kramer [employer] s - Drive [facility] Outpati ent Clinics 2019-01-08 2019-01-08 [facility] [id number] [facility] 08:54:00 08:54:00 t Specialty/U Dafne kes - Specialty rology Memori a /Urology Clinic l Clinic Outpati ent Clinics 2018-12-30 2018-12-30 [facility] [id number] 10:30:00 10:30:00 t Specialty/U Dafne kes - Specialty rology Memori a /Urology Clinic l Clinic Outpati ent Clinics 2018-12-19 2018-12-19 [facility] [id number] 14:40:00 14:40:00 t [employer]ramer [employer] - [employer] [facility] Outpati ent Clinics 2018-10-03 2018-10-03 [facility] [id number] 11:45:00 11:45:00 t Specialty/U Dafne kes - Specialty rology Memori a /Urology Clinic l Clinic Outpati ent Clinics 2018-09-18 2018-09-18 [facility] [id number] 14:40:00 14:40:00 t Kramer [email or web address] [facility] Outpati ent Clinics 2018-07-14 2018-07-14 Appointmen JUANA FLYNN [place] [id number] Univers 13:15:00 13:15:00 t; JIL Orthopedics it y of JOHN FLYNN [facility] Liz LEY APRN ans 2018-06-19 2018-06-19 [facility] [id number] 13:20:00 13:20:00 t [employer]ramer [employer] - [employer] [facility] Outpati ent Clinics 2018-06-10 2018-06-10 [facility] [id number] [facility] 16:40:00 16:40:00 t Specialty/U Dafne kes - Specialty rology Memori a /Urology Clinic l Clinic Outpati ent Clinics 2018-06-10 2018-06-10 [facility] [id number] 11:15:00 11:15:00 t Specialty/U Dafne kes - Specialty rology Memori a /Urology Clinic l Clinic Outpati ent Clinics 2018-03-24 2018-03-24 [facility] [id number] 11:24:00 11:24:00 t [employer] [facility] Family [facility] Medicine Outpati ent Clinics 2018-03-21 2018-03-21 Appointmen JUANA FLYNN [place] [id number] Univers 11:00:00 11:00:00 t; JIL, Orthopedics it y of [facility] Liz LEY SCOUT LEASER ans 2018-03-12 2018-03-12 [facility] [id number] 14:15:00 14:15:00 t [employer] [facility] Outpati ent Clinics 2018-02-27 2018-02-27 [facility] [id number] [facility] 14:59:00 14:59:00 t [employer] [facility] Outpati ent Clinics 2018-01-03 2018-01-03 Appointmen JUANA FLYNN [place] [id number] Univers 09:00:00 09:00:00 t; JIL, Orthopedics it y of [facility] JIL Physickathryn SCOUT LEASER ans 2017-12-02 2017-12-02 [facility] [id number] 14:37:00 14:37:00 t Specialty/U Dafne kes - Specialty rology Memori a /Urology Clinic l Clinic Outpati ent Clinics 2017-11-15 2017-11-15 [facility] [id number] 08:32:00 08:32:00 t Specialty/U Dafne kes - Specialty rology Memori a /Urology Clinic l Clinic Outpati ent Clinics 2017-11-12 2017-11-12 [facility] [id number] 11:15:00 11:15:00 t Kramer [employer] s - Drive [facility] Medicine Outpati ent Clinics 2017-10-31 2017-10-31 [facility] [id number] 11:00:00 11:00:00 t Specialty/U Dafne kes - Specialty rology Memori a /Urology Clinic l Clinic Outpati ent Clinics 2017-10-18 2017-10-18 [facility] [id number] [facility] 13:50:00 13:50:00 t Kramer [employer] s - Drive [facility] Outpati ent Clinics 2017-09-25 2017-09-25 [facility] [id number] [facility] 14:15:00 14:15:00 t Kramer [employer] [facility] 2017-02-13 2017-02-13 Appointmen JUANA FLYNN [place] [id number] Univers 13:45:00 13:45:00 t; ROSA LEY Orthopedics ity [facility] ROSA LEY Physi ci ans 2015-08-29 2015-08-29 Appointmen [facility] [id number] Univers 10:30:00 10:30:00 t; MARISA Moraes ity of [place] Silva M.D., Physi ci M.D. ans 2015-07-18 2015-07-18 Appointmen [facility] [id number] Univers 13:30:00 13:30:00 t; MARISA [facility]aes [facility] Oliver, Physi ci M.D. ans Results Test Description Test Time Test Comments Results Result Sour e Comments [U] XRAY SHOULDER 2018-01-03 [facility] MIN 2 VWS RIGHT 10:02:00 acquired, not [place] [id number] reported on [facility] this accession number. [U] XRAY KNEE 3 2018-01-03 [facility] VWS LEFT [id number] 09:58:00 acquired, not [place] reported on [facility] this accession number.
[2021-04-13 12:30] LABS: Urine Blood Negative (Negative); Urine Glucose Negative (Negative); Urine Protein Negative (Negative)
[2021-04-13 12:44] LABS: Absolute Lymphocytes (CBC) 0.9 K/uL (0.7-4.9); Hematocrit 38.4 % (36.0-45.0); Lymphocytes % 20.2 % (15.3-44.8); MPV 8.7 fL (7.6-11.3); Protime INR 0.91; RBC Red Blood Cell Count 4.02 M/uL (3.86-4.86)
--- NOTE | 2021-04-13 12:46 | RAD REPORT ---
EXAM DESCRIPTION: RAD - Chest Single View - 04/13/2021 12:40 pm CLINICAL HISTORY: weakness COMPARISON: Chest Single View dated 01/24/2021; Chest Pa And Lat (2 Views) dated 04/25/2019; Chest Si ngle View dated 09/20/2016; CHEST PA AND LAT 2 VIEW dated 03/30/2015 FINDINGS: Lines: None. Lungs: No evidence of edema or pneumonia. Pleural: No significant pleural effusions or pneumothorax. Cardiac: The heart size is within normal limits. Bones: No acute fractures. Advanced degenerative changes are present in the shoulders. Other: IMPRESSION: No acute cardiopulmonary disease.
--- NOTE | 2021-04-13 12:50 | RAD REPORT ---
EXAM DESCRIPTION: CT - Head Brain Wo Cont - 04/13/2021 12:41 pm CLINICAL HISTORY: WEAKNESS COMPARISON: Head Brain Wo Cont dated 01/24/2021; Head Brain Wo Cont dated 08/31/2015Head Brain Wo Con t dated 01/24/2021; Head Brain Wo Cont dated 08/31/2015 TECHNIQUE: All CT scans are performed using dose optimization technique as appropriate and may inclu de automated exposure control or mA/KV adjustment according to patient size. FINDINGS: No intracranial hemorrhage, hydrocephalus or extra-axial fluid collection.No areas of brai n edema or evidence of midline shift. The paranasal sinuses and mastoids are clear. The calvarium is intact. IMPRESSION: No acute intracranial abnormality.
[2021-04-13 12:59] LABS: ALT/SGPT 22 U/L (12-78); AST/SGOT 22 U/L (15-37); Albumin 3.3 g/dL (3.4-5.0); Alkaline Phosphatase 90 U/L (45-117); BUN Blood Urea Nitrogen 14 mg/dL (7-18); Bicarbonate 29 mmol/L (21-32); Bilirubin Direct 0.1 mg/dL (0-0.2); Bilirubin Total 0.4 mg/dL (0.2-1.0); Glucose Level 95 mg/dL (74-106); NT PRO-BNP 112 pg/mL (<450); Potassium 4.7 mmol/L (3.5-5.1); Protein, Total 7.1 g/dL (6.4-8.2); Sodium Level 136 mmol/L (136-145)
[2021-04-13 13:10] LABS: Urine Bacteria <20 /HPF (<20); Urine RBC <5 /HPF (NONE SEEN)
[2021-04-13 13:11] LABS: Urine Mucus 1+ /HPF (NONE SEEN)
--- NOTE | 2021-04-13 13:20 | EDPHYS ---
Physician Documentation [facility] Name: Mary Oakley Age: 89 yrs Sex: Female : 1930 Arrival Date: 04/13/2021 Time: 11:47 Bed 5 Private MD: ED Physician Josee Sequeira HPI: 04/13 12:46 This 89 yrs old Female presents to ER via EMS with complaints of FEELS "OFF" AFTER sp3 PHYSICAL THERAPY. 12:46 89-year-old female with a history of hyperlipidemia hypothyroidism, vasovagal syncope sp3 presents to the ED for "not feeling right" during her physical therapy and was found to be hypertensive. Patient states that she just "does not feel right" but is improving. She denies headache, neck pain, chest pain, shortness of breath, abdominal pain, nausea, vomiting, diarrhea, syncope, near syncope, focal neuro deficit, numbness or tingling, memory loss, or any other ROS symptoms at this time.. Historical: - Allergies: 11:50 PENICILLINS; bp 11:50 Sulfa (Sulfonamide Antibiotics); bp - Home Meds: 11:50 Actonel 35 mg Oral tab 1 tab once wkly [Active]; aspirin 81 mg Oral tab 81 mg nightly bp [Active]; B12 sublingual daily [Active]; biotin Oral daily [Active]; calcium oxide daily [Active]; Co Q-10 Oral daily [Active]; cranberry Oral nightly [Active]; estracde cream three times a week [Active]; gabapentin 600 mg Oral tab 1 tab 3 times per day [Active]; levothyroxine 88 mcg cap 1 cap once daily for Hypothyroidism [Active]; Magnesium Oxide Oral daily [Active]; Kam Red daily [Active]; pantoprazole 40 mg Oral TbEC 2 tabs once daily for Gastroesophageal reflux disease [Active]; pravastatin 40 mg Oral tab 1 tab once daily for Hypercholesterolemia [Active]; QNASL nasal 2 sprays BID [Active]; Zetia 10 mg Oral tab 1 tab once daily [Active]; Vitamin D3 Oral daily [Active]; venlafaxine 150 mg Oral cp24 1 cap once daily for Major Depressive Disorder [Active]; ropinirole 1 mg Oral tab 1 tab bedtime as needed [Active]; - PMHx: 11:50 Depression; vasovagal syncope; UTI; Hypothyroidism; Hyperlipidemia; GERD; bp - Immunization history:: Adult Immunizations up to date. - Social history:: Smoking status: Patient denies any tobacco usage or history of. ROS: 12:48 Constitutional: Negative for fever, chills, and weight loss, Eyes: Negative for injury, sp3 pain, redness, and discharge, ENT: Negative for injury, pain, and discharge, Neck: Negative for injury, pain, and swelling, Cardiovascular: Negative for chest pain, palpitations, and edema, Respiratory: Negative for shortness of breath, cough, wheezing, and pleuritic chest pain, Abdomen/GI: Negative for abdominal pain, nausea, vomiting, diarrhea, and constipation, Back: Negative for injury and pain, Skin: Negative for injury, rash, and discoloration, Allergy/Immunology: Negative for hives, rash, and allergies, Endocrine: Negative for neck swelling, polydipsia, polyuria, polyphagia, and marked weight changes, Hematologic/Lymphatic: Negative for swollen nodes, abnormal bleeding, and unusual bruising. 12:48 All other systems are negative. Exam: 12:48 Constitutional: This is a well developed, well nourished patient who is awake, alert, sp3 and in no acute distress. Head/Face: Normocephalic, atraumatic. Eyes: Pupils equal round and reactive to light, extra-ocular motions intact. Lids and lashes normal. Conjunctiva and sclera are non-icteric and not injected. Cornea within normal limits. Periorbital areas with no swelling, redness, or edema. ENT: Nares patent. No nasal discharge, no septal abnormalities noted. External auditory canals are clear. Oropharynx with no redness, swelling, or masses, exudates, or evidence of obstruction, uvula midline. Mucous membranes moist. Neck: Trachea midline, no thyromegaly or masses palpated, and no cervical lymphadenopathy. Supple, full range of motion without nuchal rigidity, or vertebral point tenderness. No Meningismus. Chest/axilla: Normal chest wall appearance and motion. Nontender with no deformity. No lesions are appreciated. Cardiovascular: Regular rate and rhythm with a normal S1 and S2. No gallops, murmurs, or rubs. Normal PMI, no JVD. No pulse deficits. Respiratory: Lungs have equal breath sounds bilaterally, clear to auscultation and percussion. No rales, rhonchi or wheezes noted. No increased work of breathing, no retractions or nasal flaring. Abdomen/GI: Soft, non-tender, with normal bowel sounds. No distension or tympany. No guarding or rebound. No evidence of tenderness throughout. Back: No spinal tenderness. No costovertebral tenderness. Full range of motion. MS/ Extremity: Pulses equal, no cyanosis. Neurovascular intact. Full, normal range of motion. Neuro: Awake and alert, GCS 15, oriented to person, place, time, and situation. Cranial nerves II-XII grossly intact. Motor strength 5/5 in all extremities. Sensory grossly intact. Cerebellar exam normal. Normal gait. Vital Signs: 11:47 BP 192 / 72; Pulse 72; Resp 16; Temp 98; Pulse Ox 100% ; bp 12:02 BP 198 / 81; Pulse 63; Resp 12; Temp 98.1; Pulse Ox 100% on R/A; Weight 78.02 kg; lr4 Height 5 ft. 7 in. (170.18 cm); Pain 0/10; 13:24 BP 165 / 74; Pulse 60; Resp 14; ll1 12:02 Body Mass Index 26.94 (78.02 kg, 170.18 cm) lr4 MDM: 12:03 Patient medically screened. sp3 12:49 Data reviewed: vital signs, nurses notes. ED course: EKG demonstrates normal sinus sp3 rhythm at 62 bpm with normal intervals, normal QRS, normal axis, nonspecific ST/T changes with early repolarization in V3 otherwise normal with no evidence of ischemia. Patient shows no evidence of ischemia and no evidence of CVA at this time. Will assess for endorgan damage with a CT scan of the head, cardiac enzymes, and creatinine evaluation. Blood pressure is mildly elevated but not in any critical level. Headache is resolved on its own. Disposition likely home pending work-up completion.. 13:18 ED course: Is negative and patient's blood pressure has come down. Will discharge sp3 patient home at this time.. 04/13 12:04 Order name: Basic Metabolic Panel sp3 04/13 12:04 Order name: CBC with Diff; Complete Time: 13:16 sp3 04/13 12:04 Order name: LFT's sp3 04/13 12:04 Order name: Magnesium sp3 04/13 12:04 Order name: NT PRO-BNP sp3 04/13 12:04 Order name: PT-INR; Complete Time: 13:16 sp3 04/13 12:04 Order name: Troponin HS sp3 04/13 12:04 Order name: XRAY Chest (1 view); Complete Time: 13:16 sp3 04/13 12:04 Order name: EKG; Complete Time: 12:05 sp3 04/13 12:04 Order name: UA MICROSCOPIC; Complete Time: 13:16 sp3 04/13 12:05 Order name: CT Head Brain wo Cont; Complete Time: 13:16 sp3 04/13 12:29 Order name: Urine Dipstick-Ancillary; Complete Time: 13:16 EDMS 04/13 13:12 Order name: Urine Culture EDMS 04/13 12:04 Order name: Cardiac monitoring; Complete Time: 12:14 sp3 04/13 12:04 Order name: EKG - Nurse/Tech; Complete Time: 12:14 sp3 04/13 12:04 Order name: Labs collected and sent; Complete Time: 12:13 sp3 04/13 12:04 Order name: O2 Per Protocol; Complete Time: 12:13 sp3 04/13 12:04 Order name: O2 Sat Monitoring; Complete Time: 12:13 sp3 04/13 12:04 Order name: Urine Dipstick-Ancillary (obtain specimen); Complete Time: 13:25 sp3 Administered Medications: No medications were administered Disposition Summary: 04/13/21 13:19 Discharge Ordered Location: Home sp3 Condition: Stable sp3 Diagnosis - Essential (primary) hypertension sp3 Followup: sp3 - With: Private Physician - When: Upon discharge from the Emergency Department - Reason: Re-evaluation by your physician Discharge Instructions: - Discharge Summary Sheet sp3 - Hypertension, Adult sp3 Forms: - Medication Reconciliation Form sp3 - Thank You Letter sp3 - Antibiotic Education sp3 - Prescription Opioid Use sp3 Signatures: Dispatcher [employer] EDDaniel Gomez RN RN Josee Jiang MD MD sp3 Corrections: (The following items were deleted from the chart) 12:50 12:49 ED course: EKG demonstrates normal sinus rhythm at 62 bpm with normal intervals, sp3 normal QRS, normal axis, nonspecific ST/T changes with early repolarization in V3 otherwise normal with no evidence of ischemia.. sp3 13:08 12:05 URINALYSIS+U.LAB.BRZ ordered. EDMS EDMS 13:25 12:04 IV Saline Lock ordered. sp3 ll1
--- NOTE | 2021-04-13 13:20 | ER ---
Nurse's Notes [facility] Name: Mary Oakley Age: 89 yrs Sex: Female : 1930 Arrival Date: 04/13/2021 Time: 11:47 Bed 5 Private MD: Diagnosis: Essential (primary) hypertension Presentation: 04/13 11:47 Chief complaint: EMS states: FEELS "OFF" AFTER PHYSICAL THERAPY. Coronavirus screen: At bp this time, the client does not indicate any symptoms associated with coronavirus-19. Ebola Screen: No symptoms or risks identified at this time. Initial Sepsis Screen: Does the patient meet any 2 criteria? No. Patient's initial sepsis screen is negative. Does the patient have a suspected source of infection? No. Patient's initial sepsis screen is negative. Risk Assessment: Do you want to hurt yourself or someone else? Patient reports no desire to harm self or others. Onset of symptoms was April 13, 2021 at 10:00. 11:47 Method Of Arrival: EMS: [facility] bp 11:47 Acuity: YOLIS 3 bp Triage Assessment: 11:50 General: Appears in no apparent distress. comfortable, Behavior is cooperative, bp appropriate for age, anxious. Pain: Complains of pain in head. EENT: No deficits noted. Neuro: Level of Consciousness is awake, alert, obeys commands, Oriented to person, place, time. Cardiovascular: Rhythm is sinus rhythm. Respiratory: No deficits noted. GI: No signs and/or symptoms were reported involving the gastrointestinal system. : No signs and/or symptoms were reported regarding the genitourinary system. Derm: No deficits noted. Musculoskeletal: No deficits noted. 12:03 General: Appears in no apparent distress. comfortable, well groomed, well developed, lr4 well nourished, Behavior is calm, cooperative. Pain: Denies pain. Neuro: No deficits noted. Level of Consciousness is awake, alert, obeys commands, Oriented to person, place, time, situation, Appropriate for age [employer] are equal bilaterally Moves all extremities. Gait is Speech is normal, Facial symmetry appears normal. Cardiovascular: No deficits noted. Denies chest pain. Respiratory: No deficits noted. Airway is patent Respiratory effort is even, unlabored, Respiratory pattern is regular, symmetrical, Breath sounds are clear. Historical: - Allergies: 11:50 PENICILLINS; bp 11:50 Sulfa (Sulfonamide Antibiotics); bp - Home Meds: 11:50 Actonel 35 mg Oral tab 1 tab once wkly [Active]; aspirin 81 mg Oral tab 81 mg nightly bp [Active]; B12 sublingual daily [Active]; biotin Oral daily [Active]; calcium oxide daily [Active]; Co Q-10 Oral daily [Active]; cranberry Oral nightly [Active]; estracde cream three times a week [Active]; gabapentin 600 mg Oral tab 1 tab 3 times per day [Active]; levothyroxine 88 mcg cap 1 cap once daily for Hypothyroidism [Active]; Magnesium Oxide Oral daily [Active]; Kam Red daily [Active]; pantoprazole 40 mg Oral TbEC 2 tabs once daily for Gastroesophageal reflux disease [Active]; pravastatin 40 mg Oral tab 1 tab once daily for Hypercholesterolemia [Active]; QNASL nasal 2 sprays BID [Active]; Zetia 10 mg Oral tab 1 tab once daily [Active]; Vitamin D3 Oral daily [Active]; venlafaxine 150 mg Oral cp24 1 cap once daily for Major Depressive Disorder [Active]; ropinirole 1 mg Oral tab 1 tab bedtime as needed [Active]; - PMHx: 11:50 Depression; vasovagal syncope; UTI; Hypothyroidism; Hyperlipidemia; GERD; bp - Immunization history:: Adult Immunizations up to date. - Social history:: Smoking status: Patient denies any tobacco usage or history of. Screenin:25 Abuse screen: Denies threats or abuse. Nutritional screening: No deficits noted. ll1 Tuberculosis screening: No symptoms or risk factors identified. Fall Risk IV access (20 points). Gait- Weak (10 pts.). Total Maldonado Fall Scale indicates Low Risk Score (25-44 pts). Fall prevention measures have been instituted. Side Rails Up X 2 Placed close to Nursing Station Frequent Obs/Assesments occuring As available Patient and Family Educated on Fall Prevention Program and strategies. Assessment: 13:15 Reassessment: Patient and/or family updated on plan of care and expected duration. Pain ll1 level reassessed. requests restless legs medication, food, and water. Dr. Sequeira informed. He is about to discharge patient home. . Vital Signs: 11:47 BP 192 / 72; Pulse 72; Resp 16; Temp 98; Pulse Ox 100% ; bp 12:02 BP 198 / 81; Pulse 63; Resp 12; Temp 98.1; Pulse Ox 100% on R/A; Weight 78.02 kg; lr4 Height 5 ft. 7 in. (170.18 cm); Pain 0/10; 13:24 BP 165 / 74; Pulse 60; Resp 14; ll1 12:02 Body Mass Index 26.94 (78.02 kg, 170.18 cm) lr4 ED Course: 11:47 Patient arrived in ED. bp 11:47 Josee Sequeira MD is Attending Physician. sp3 11:49 Triage completed. bp 11:50 Arm band placed on. bp 11:55 EKG done, by ED staff, reviewed by Josee Sequeira MD. lr4 12:00 Patient has correct armband on for positive identification. Bed in low position. Call ll1 light in reach. Side rails up X 1. Pulse ox on. NIBP on. 12:05 Daniel Nicole, RN is Primary Nurse. bp 12:29 Missed attempt(s): 20 gauge in left antecubital area. Bleeding controlled, band aid bp applied, catheter tip intact. 12:39 XRAY Chest (1 view) In Process Unspecified. EDMS 12:40 CT Head Brain wo Cont In Process Unspecified. EDMS 13:24 No provider procedures requiring assistance completed. ll1 13:25 Patient did not have IV access during this emergency room visit. ll1 Administered Medications: No medications were administered Outcome: 13:19 Discharge ordered by . sp3 13:25 Discharged to home ambulatory. ll1 13:25 Condition: stable 13:25 Discharge instructions given to patient, Instructed on discharge instructions, follow up and referral plans. Demonstrated understanding of instructions, follow-up care. 13:26 Patient left the ED. ll1 Signatures: Dispatcher [employer] EDMS Daniel Nicole, RN Tao Morris RN RN ll1 Josee Sequeira MD MD sp3 Luz Welch RN RN lr4
[2021-04-13 13:30] VITALS: O2SAT 100
[2021-04-13 13:32] VITALS: TEMP 98.1
[2021-04-13 13:33] VITALS: BP 165/74
== END 2021-04-13 13:26 | disposition home or self-care (01) ==
LOC: ER 11:46
DX: I10 Essential (primary) hypertension (principal); E03.9 Hypothyroidism, unspecified; F32.A Depression, unspecified; E78.5 Hyperlipidemia, unspecified
CPT/HCPCS: 36415; 70450; 71045; 80048; 80076; 81003; 81015; 83735; 83880; 84484; 85025; 85610; 87086; 87088; 93005; 99284